=== PATIENT | female | born 1985 ===

== ENCOUNTER 2021-02-02 09:47 | Outpatient (REF) | payer OTHER, SELFPAY ==
[2021-02-02 14:00] LABS: CT PCR NOT DETECTED (Not Detect.); NG PCR NOT DETECTED (Not Detect.)
[2021-02-03 10:01] LABS: BV Int Neg Control Negative (Negative); BV Int Pos Control Positive (Positive)
== END 2021-02-02 09:48 | disposition home or self-care (01) ==
LOC: HO.LAB 09:47
PROVIDERS: Visit Provider Obstetrics & Gynecology
DX: Z01.419 Encounter for gynecological examination (general) (routine) without abnormal findings (principal); Z11.3 Encounter for screening for infections with a predominantly sexual mode of transmission
CPT/HCPCS: 87480; 87491; 87510; 87591; 87660

== ENCOUNTER 2021-06-27 02:08 | Emergency (ER) | payer OTHER, SELFPAY ==
[2021-06-27 02:11] VITALS: BP 119/54; PULSE 70; RESP 16; TEMP 36.7; O2SAT 97; BMI 28.1
[2021-06-27 02:17] VITALS: BP 122/64; PULSE 72; O2SAT 99
[2021-06-27 02:18] VITALS: RESP 16
--- NOTE | 2021-06-27 03:25 | ED_ITS ---
HPI - Back Pain/Injury General Chief Complaint: Back Pain/Injury Stated Complaint: back pain Time Seen by Provider: 06/27/21 03:25 Source: patient Mode of arrival: ambulatory History of Present Illness HPI Narrative: 35-year-old female without significant past medical history who presents with acute on chronic lower back pain that she states radiates down the back of her left lower extremity and endorses that this was acute onset while s he was sleeping in bed. She states that she felt very stiff and had some difficulty making it to the bathroom. However, she denies any recent fever, chills, diarrhea, loss of bowel or bladder function. Patient states she does have a history of sciatica and denies any urinary pain/burning/frequency. She denies any recent falls or physical altercations that may have contributed to her back pain. Related Data Home Medications Medication Instructions Recorded Confirmed multivitamin 1 tab PO DAILY 02/02/21 Previous Rx's Medication Instructions Recorded cyclobenzaprine 5 mg tablet 5 mg PO BEDTIME PRN #4 tab 06/27/21 ketorolac 10 mg tablet 10 mg PO Q6H PRN 5 Days #20 tab 06/27/21 Allergies Allergy/AdvReac Type Severity Reaction Status Date / Time No Known Allergies Allergy Unknown Verified 02/02/21 09:55 Review of Systems Review of Systems: Pertinent positives and negatives as stated in HPI and 10 point review of systems is otherwise negative. PMFSH Past Medical History Source: nursing notes reviewed Surgical History H/O breast augmentation Tubal ligation status Social History Social History Alcohol intake: current Patient Tobacco Use Status: Current everyday Tobacco user Advance Directives: No Physical Exam Vital Signs: Vital Signs: Last Vital Signs Temp 98.0 F 06/27/21 02:11 Pulse 70 06/27/21 02:11 Resp 16 06/27/21 02:18 BP 119/54 L 06/27/21 02:11 Pulse Ox 97 06/27/21 02:11 Body Mass Index 28.1 VITAL SIGNS: Reviewed. GENERAL: Well developed, well nourished, in no acute distress. HEAD: Normocephalic/atraumatic EYES: PERRLA, EOMI OROPHARYNX: no oral lesions noted, posterior pharynx clear NECK: Supple, no adenopathy LUNGS: Normal breath sounds. No adventitious sounds or accessory muscle use. SpO2<97> CARDIOVASCULAR: Regular rate and rhythm without noted murmurs ABDOMEN: Soft, non-tender, non-distended with bowel sounds. BACK: Pain on palpation over left lower back, palpable DP/PT, capillary refill is less than 3 seconds, straight leg test is negative MUSCULOSKELETAL: No tenderness, deformities, or effusions noted on gross inspection. EXTREMITIES: No cyanosis, clubbing or edema. SKIN: Inspection of the skin reveals no rashes NEUROLOGIC: Alert and oriented x 4. Strength and sensation to light touch were grossly intact x 4. Course Course Course Narrative: 35-year-old female with history and clinical presentation most consistent with acute on chronic lower back pain associated sciatica, but will rule out UTI. Low clinical suspicion for cauda equina. Review of all investigations negative for acute findings such as and on re-evaluation after receiving combination analgesics patient reports improvement in her pain and discomfort and is otherwise discharged home in stable condition with instructions to follow up with the primary care provider. MDM - Back Pain/Injury Lab Data Labs: Lab Results 06/27/21 06/27/21 Range/Units 03:41 03:41 Urine Color YELLOW Urine Appearance CLEAR Urine pH 6.0 (5.0-8.0) Ur Specific [place] >= 1.030 H (1.005-1.025) Urine Protein NEG (NEG-TRACE) MG/DL Urine Glucose (UA) NEG (NEG) MG/DL Urine Ketones NEG (NEG) MG/DL Urine Blood 1+ H (NEG) Urine Nitrite NEG (NEG) Ur Leukocyte Esterase NEG (NEG) Urine RBC 0-2 (0) /HPF Urine WBC 0-2 (0-4) /HPF Ur Squamous Epith Cells 2+ /LPF Urine Bacteria NONE /LPF Urine Mucus 4+ /LPF Urine Test NEGATIVE (NEGATIVE) Discharge Plan Discharge Clinical Impression: Lumbar radiculopathy, Sciatica Patient Disposition: Home, Self-Care Instructions: Sciatica (ED), Lumbar Radiculopathy (ED), Lower Back Exercises (ED) Additional Instructions: 1. Tylenol 1000 mg, orally, every 6 hours as needed for pain control. Do not exceed 4000 mg within 24 hours. 2. Lidocaine patch, these are available [id number] and should be apply to area of maximal tenderness as directed on the outside packaging. 3. Follow-up with your primary care provider today to set up an appointment for re-evaluation further outpatient management. Return to the ER for acute worsening of symptoms. Prescriptions: New cyclobenzaprine 5 mg tablet 5 mg PO BEDTIME PRN (Reason: muscle spasm) Qty: 4 RF: 0 ketorolac 10 mg tablet 10 mg PO Q6H PRN (Reason: pain) 5 Days Qty: 20 RF: 0 No Action multivitamin Tablet 1 tab PO DAILY RF: 0 Stand Alone Forms: Work/School Release
[2021-06-27 04:06] LABS: Appearance Urine CLEAR; Color Urine YELLOW; Glucose Urine UA NEG (NEG); Leukocyte Esterase Urine NEG (NEG); Nitrite Urine NEG (NEG); Specific Gravity - Urine >= 1.030 (1.005-1.025); UACC Culture Trigger NO; Urine Blood 1+ (NEG); Urine Ketones NEG (NEG); Urine Protein NEG (NEG-TRACE)
[2021-06-27 04:15] LABS: UPreg QC Valid YES; Urine Pregnancy NEGATIVE (NEGATIVE)
[2021-06-27] MEDS: Acetaminophen 325 MG TABLET 975 MG PO (04:22)
[2021-06-27] MEDS: Lidocaine 4 % Patch ADH..PATCH 1 PATCH TRANSDERMA (04:22)
[2021-06-27 04:42] LABS: Mucus Urine 4+ /LPF; RBC Urine 0-2 /HPF (0); Squamous Epithelial Cell Urine 2+ /LPF; WBC Urine 0-2 /HPF (0-4)
[2021-06-27] MEDS: Ketorolac Tromethamine 15 MG/ML VIAL IM (04:54)
[2021-06-27] MEDS: Cyclobenzaprine HCl 5 MG TABLET PO (04:54)
[2021-06-27 05:05] VITALS: RESP 16
== END 2021-06-27 05:07 | disposition home or self-care (01) ==
PROVIDERS: Emergency Provider Student in an Organized Health Care Education/Training Program
DX: M54.16 Radiculopathy, lumbar region (principal); M54.40 Lumbago with sciatica, unspecified side
CPT/HCPCS: 81001; 81003; 81025; 96372; 99284; J1885

== ENCOUNTER 2021-07-13 15:47 | Outpatient (REF) | payer OTHER, SELFPAY ==
--- NOTE | ~2021-07-13 | XR_ITS ---
EXAMINATION: 1. RADIOGRAPHS LUMBAR SPINE 2. RADIOGRAPHS SACRUM/COCCYX CLINICAL INFORMATION: Sacroiliitis COMPARISON: Lumbar spine x-rays 08/19/2010 TECHNIQUE: 5 views of the lumbar spine and 2 views of the sacrum/coccyx were obtained. FINDINGS: 5 nonrib-bearing lumbar vertebral bodies are visualized. Normal alignment. Lumbar vertebral body heights and disc spaces are well-maintained. No appreciable degenerative changes of the lumbar spine. No fracture of the sacrum or coccyx. Sacroiliac joints are symmetric. Small pelvic calcifications are likely vascular in nature. XR/XR lumbar spine 4V min IMPRESSION: Unremarkable radiographs of the lumbar spine, sacrum and coccyx.
--- NOTE | ~2021-07-13 | XR_ITS ---
EXAMINATION: 1. RADIOGRAPHS LUMBAR SPINE 2. RADIOGRAPHS SACRUM/COCCYX CLINICAL INFORMATION: Sacroiliitis COMPARISON: Lumbar spine x-rays 08/19/2010 TECHNIQUE: 5 views of the lumbar spine and 2 views of the sacrum/coccyx were obtained. FINDINGS: 5 nonrib-bearing lumbar vertebral bodies are visualized. Normal alignment. Lumbar vertebral body heights and disc spaces are well-maintained. No appreciable degenerative changes of the lumbar spine. No fracture of the sacrum or coccyx. Sacroiliac joints are symmetric. Small pelvic calcifications are likely vascular in nature. XR/XR sacrum coccyx min 2V IMPRESSION: Unremarkable radiographs of the lumbar spine, sacrum and coccyx.
== END 2021-07-13 15:48 | disposition home or self-care (01) ==
LOC: HO.XRAY 15:47
PROVIDERS: Visit Provider Nurse Practitioner Adult Health
DX: M46.1 Sacroiliitis, not elsewhere classified (principal)
CPT/HCPCS: 72110; 72220

== ENCOUNTER 2022-02-08 10:58 | Outpatient (REF) | payer OTHER, SELFPAY ==
[2022-02-08 14:05] LABS: CT PCR NOT DETECTED (Not Detect.); NG PCR NOT DETECTED (Not Detect.)
== END 2022-02-08 10:59 | disposition home or self-care (01) ==
LOC: HO.LAB 10:58
PROVIDERS: Visit Provider Obstetrics & Gynecology
DX: Z11.3 Encounter for screening for infections with a predominantly sexual mode of transmission (principal); R10.2 Pelvic and perineal pain
CPT/HCPCS: 87086; 87491; 87591

== ENCOUNTER 2023-02-14 09:46 | Outpatient (REF) | payer OTHER, SELFPAY | END 2023-02-14 09:47 | disposition home or self-care (01) | LOC: HO.LAB 09:46 | PROVIDERS: Visit Provider Obstetrics & Gynecology | DX: Z01.419 Encounter for gynecological examination (general) (routine) without abnormal findings (principal); N93.9 Abnormal uterine and vaginal bleeding, unspecified; Z20.2 Contact with and (suspected) exposure to infections with a predominantly sexual mode of transmission | CPT/HCPCS: 0353U; 84146; 84443; 84702; 85027; 86780; 86803; 87340; 99212 ==

== ENCOUNTER 2023-02-14 10:29 | Outpatient (REF) | payer OTHER, SELFPAY | END 2023-02-14 10:30 | disposition home or self-care (01) | LOC: HO.LNP 10:29 | PROVIDERS: Visit Provider Obstetrics & Gynecology | DX: N93.9 Abnormal uterine and vaginal bleeding, unspecified (principal); Z20.2 Contact with and (suspected) exposure to infections with a predominantly sexual mode of transmission | CPT/HCPCS: 87480; 87510; 87660 ==

== ENCOUNTER 2023-04-17 11:28 | Outpatient (REF) | payer OTHER, SELFPAY ==
--- NOTE | ~2023-04-17 | US_ITS ---
EXAMINATION: US PELVIS CLINICAL INFORMATION: Abnormal bleeding. LMP 04/12/2023. COMPARISON: 12/15/2019 TECHNIQUE: Ultrasound of the pelvis is performed using both transabdominal and transvaginal transducers along with Doppler. Transvaginal imaging is performed due to inadequate visualization transabdominally. FINDINGS: Uterus: The uterus is retroverted and measures 7.3 x 4.1 x 5.7 cm. Uterine echotexture is heterogeneous. The double wall endometrial thickness is 0.7 mm. Cervical nabothian cysts are present. Adnexa: Both ovaries are visualized. There is normal color flow to the adnexa. Right ovary measures 2.8 x 2.0 x 2.3 cm. Left ovary measures 2.9 x 1.8 x 1.8 cm. A left paraovarian cyst measures 0.6 x 0.4 x 0.6 cm. US/US pelvic and transvaginal IMPRESSION: Unremarkable pelvic ultrasound.
== END 2023-04-17 11:29 | disposition home or self-care (01) ==
LOC: HO.US 11:28
PROVIDERS: Visit Provider Obstetrics & Gynecology
DX: N93.9 Abnormal uterine and vaginal bleeding, unspecified (principal)
CPT/HCPCS: 76830; 76856

== ENCOUNTER 2023-08-21 13:53 | Outpatient (REF) | payer OTHER, SELFPAY | END 2023-08-21 13:54 | disposition home or self-care (01) | LOC: HO.LNP 13:53 | PROVIDERS: PCP Internal Medicine; Visit Provider Obstetrics & Gynecology | DX: N93.9 Abnormal uterine and vaginal bleeding, unspecified (principal) | CPT/HCPCS: 58100; 81025; 88305 ==

== ENCOUNTER 2023-08-21 13:53 | Outpatient (AMB) | payer OTHER, SELFPAY ==
--- OUTSIDE RECORDS SUMMARY | 2023-08-21 13:55 | XMS_ITS | Continuity of Care Document ---
Author Name Unknown Organization [facility] Hardy lt Address [address] [place] [phone]- Care Team Providers Care Vp Marketing Services And Skin Name Role Phone Dutch Merchant MD Primary Care Physician [phone] [place] [facility] [place]): 06/14/23 - 07/14/23 [facility] Adult [address] [place] [address]- Allergies, Adverse Reactions, Alerts No Known Allergies Immunizations Given and Recorded Vaccine Date Status Refusal Reason SARS-CoV-2 (COVID-19) mRNA-1273 vaccine 08/09/21 R ecorded SARS-CoV-2 (COVID-19) Ad26 vaccine 11/21/20 Given tetanus/diphtheria/pertussis, acel(Tdap) 09/28/16 Given influenza virus vaccine, inactivated 1 05/31/16 Re corded 1Location History: [facility]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 Start Date: 11/30/21 Status: Ordered hydrOXYzine hydrochloride 25 mg oral tablet 0 Refills, Maintenance, 06/11/23 10:35:00 EDT, Partial fill upon patient request if the prescription is for a schedule II opioid drug. Start Date: 06/11/23 Status: Ordered MiraLax oral powder for reconstitution = 17 Gm, By Mouth, Daily, dissolve in water before taking, # 255 Gm, 3 Refills, Maintenance, 07/12/20 13:26:00 EST, [place], [id number], Partial fill upon patient request, 17 Gm By Mouth Daily,Instr:dissolve in water before taking, 168, cm,... Start Date: 07/12/20 Status: Ordered Multi Vitamin+ 0 Refills, Maintenance, 10/23/22 14:07:00 EDT, Partial fill upon patient request if the prescription is for a schedule II opioid drug. Start Date: 10/23/22 Status: Ordered omeprazole 20 mg oral delayed release tablet 1 tablet = 20 mg, By Mouth, Daily, # 30 tablet, 0 Refills, Maintenance, 10/23/22 14:26:00 EDT, [place] Tablet, [facility]/pharmacy #[id number], Partial fill upon patient request if the prescription is for a schedule II opioid drug., 168, cm, 10/23/22 14:00:00 EDT, Height Start Date: 10/23/22 Status: Ordered sertraline 50 mg oral tablet 1 tablet, By Mouth, Daily, # 30 tablet, 1 Refills, Maintenance, 10/23/22 14:26:00 EDT, [id number], 168, cm, 10/23/22 14:00:00 EDT, Height Start Date: 10/23/22 Status: Ordered Tylenol 8 Hour 650 mg oral tablet, extended release 2 tablet = 1,300 mg, By Mouth, Every 8 hours, 0 Refills, Maintenance, 04/24/22 15:39:00 EDT, Partial fill upon patient request if the prescription is for a schedule II opioid drug. Start Date: 04/24/22 Status: Ordered Problem List Condition Confirmation Course Effective Dates Status H ealth Status Informant Abdominal pain Confirmed Active Acne Confirmed Active Daily headache Confirmed Active Excessive caffeine intake Confirmed Active History of chlamydia 1 Confirmed Active Joint pain Confirmed Active Left lateral epicondylitis Confirmed Active Left cervical radiculopathy Confirmed Active Lt low back pain Confirmed Active Mixed incontinence Confirmed Active Arm pain Confirmed Active Screen for sexually transmitted diseases Confirmed Active Tinea versicolor Confirmed Active PTSD (post-traumatic stress disorder) Confirmed Active Insomnia due to psychological stress Confirmed Active Major depression, recurrent Confirmed Active Tobacco abuse Confirmed Active 1j2016, routine screening Social History Social History Type Response Tobacco Use: 4 or less cigar ettes(less than 1/4 pack)/day in last 30 days. Sex Patient Care team information Care Team Personnel Name: Shonda HIGHTOWER, [place] Lo Position: S Physician - Primary Care Member Role: PCP Address: Address: [address] [place] [address]- Care Team Related Persons Name: DAILEYMAYOSHAHLA Address: home [address] [address]
--- OUTSIDE RECORDS SUMMARY | 2023-08-21 13:56 | XMS_ITS | Continuity of Care Document ---
Author Name Unknown Organization [facility] Hardy lt Address [address] [place] [address]- Care Team Providers Care Medical Office Supervisor Name Role Phone Dutch Merchant MD Primary Care Physician [place] [facility] [place]23 [facility] Adult [address] [place] [address]- Attending Physician: Not on Staff, Attending MD Allergies, Adverse Reactions, Alerts No Known Allergies Immunizations Given and Recorded Vaccine Date Status Refusal Reason SARS-CoV-2 (COVID-19) mRNA-1273 vaccine 08/09/21 R ecorded SARS-CoV-2 (COVID-19) Ad26 vaccine 11/21/20 Given tetanus/diphtheria/pertussis, acel(Tdap) 09/28/16 Given influenza virus vaccine, inactivated 1 05/31/16 Re corded 1Location 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
--- OUTSIDE RECORDS SUMMARY | 2023-08-21 13:56 | XMS_ITS | Continuity of Care Document ---
Author Name Unknown Organization [facility] Hardy lt Address [address] [place] [address]- Care Team Providers Care Emergency Veterinary Technician Name Role Phone Dutch Merchant MD Primary Care Physician [phone] Encounter [facility] [place] Date(s): 05/30/23 - 06/29/23 [facility] Adult [address] [place] [address]- Allergies, Adverse Reactions, Alerts No Known Allergies Immunizations Given and Recorded Vaccine Date Status Refusal Reason SARS-CoV-2 (COVID-19) mRNA-1273 vaccine 08/09/21 R ecorded SARS-CoV-2 (COVID-19) Ad26 vaccine 11/21/20 Given tetanus/diphtheria/pertussis, acel(Tdap) 09/28/16 Given influenza virus vaccine, inactivated 1 05/31/16 Re corded 1Location History: [facility]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
--- OUTSIDE RECORDS SUMMARY | 2023-08-21 13:56 | XMS_ITS | Continuity of Care Document ---
Author Name Unknown Organization [facility] Hardy lt Address [address] [place] [address]- Care Team Providers Care Metrology Engineer Name Role Phone Dutch Merchant MD Primary Care Physician Encounter [facility] [place] Date(s): 06/12/23 - 07/12/23 [facility] Adult [address] [place] [address]- Allergies, Adverse Reactions, Alerts No Known Allergies Immunizations Given and Recorded Vaccine Date Status Refusal Reason SARS-CoV-2 (COVID-19) mRNA-1273 vaccine 08/09/21 R ecorded SARS-CoV-2 (COVID-19) Ad26 vaccine 11/21/20 Given tetanus/diphtheria/pertussis, acel(Tdap) 09/28/16 Given influenza virus vaccine, inactivated 1 05/31/16 Re corded 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
--- OUTSIDE RECORDS SUMMARY | 2023-08-21 13:56 | XMS_ITS | Continuity of Care Document ---
Author Name Unknown Organization [facility] Hardy lt Address [address] [place] [address]- Care Team Providers Care Religious Education Director Name Role Phone Dutch Merchant MD Primary Care Physician [phone] Encounter [facility] Date(s): 06/12/23 - 07/12/23 [facility] Adult [address] [place] [address]- Allergies, Adverse Reactions, Alerts No Known Allergies Immunizations Given and Recorded Vaccine Date Status Refusal Reason SARS-CoV-2 (COVID-19) mRNA-1273 vaccine 08/09/21 R ecorded SARS-CoV-2 (COVID-19) Ad26 vaccine 11/21/20 Given tetanus/diphtheria/pertussis, acel(Tdap) 09/28/16 Given influenza virus vaccine, inactivated 1 05/31/16 Re corded 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
--- OUTSIDE RECORDS SUMMARY | 2023-08-21 13:57 | XMS_ITS | Continuity of Care Document ---
Author Name Unknown Organization [facility] Hardy lt Address [address] [place] [address]- Care Team Providers Care Plant Maintenance Technician Name Role Phone Dutch Merchant MD Primary Care Physician Encounter [facility] Date(s): 06/14/23 - 07/14/23 [facility] Adult [address] [place] [address]- Allergies, Adverse Reactions, Alerts No Known Allergies Immunizations Given and Recorded Vaccine Date Status Refusal Reason SARS-CoV-2 (COVID-19) mRNA-1273 vaccine 08/09/21 R ecorded SARS-CoV-2 (COVID-19) Ad26 vaccine 11/21/20 Given tetanus/diphtheria/pertussis, acel(Tdap) 09/28/16 Given influenza virus vaccine, inactivated 1 05/31/16 Re corded 1Location 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
--- OUTSIDE RECORDS SUMMARY | 2023-08-21 13:57 | XMS_ITS | Continuity of Care Document ---
Author Name Unknown Organization [facility] Hardy lt Address [address] [place] [address]- Care Team Providers Care Bias Cutting Machine Operator Name Role Phone Dutch Merchant MD Primary Care Physician [id number] Adult [address] [place] [address]- Encounter Diagnosis IBS (irritable bowel syndrome)(Discharge Diagnosis) - 08/09/23 Attending Physician: Mg HIGHTOWER, Manish Lo Allergies, Adverse Reactions, Alerts No Known Allergies Immunizations Given and Recorded Vaccine Date Status Refusal Reason SARS-CoV-2 (COVID-19) mRNA-1273 vaccine 08/09/21 R ecorded SARS-CoV-2 (COVID-19) Ad26 vaccine 11/21/20 Given tetanus/diphtheria/pertussis, acel(Tdap) 09/28/16 Given influenza virus vaccine, inactivated 1 05/31/16 Re corded 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 Start Date: 06/11/23 Status: Ordered Multi Vitamin+ 0 Refills, Maintenance, 10/23/22 14:07:00 EDT, Partial fill upon patient request if the prescription is for a schedule II opioid drug. Start Date: 10/23/22 Status: Ordered omeprazole 20 mg oral delayed release tablet 1 tablet = 20 mg, By Mouth, Daily, # 30 tablet, 0 Refills, Maintenance, 10/23/22 14:26:00 EDT, CR Tablet, [facility]/pharmacy #[id number], Partial fill upon patient request if the prescription is for a schedule II opioid drug., 168, cm, 10/23/22 14:00:00 EDT, Height Start Date: 10/23/22 Status: Ordered sertraline 50 mg oral tablet 1 tablet, By Mouth, Daily, # 30 tablet, 1 Refills, Maintenance, 10/23/22 14:26:00 EDT, [facility]/pharmacy#[id number], 168, cm, 10/23/22 14:00:00 EDT, Height Start [...] recurrent Confirmed Active Tobacco abuse Confirmed Active 1june 2016, routine screening Diagnosis Diagnosis Type Effective Dates Health Status Cl inical Service Informant IBS (irritable bowel syndrome) Discharge Diagnosis 08/09/23 Vital Signs Most recent to oldest [Reference Range]: 1 Height 168 cm (08/09/23 1:47 PM) Weight 69.9 kg (08/09/23 1:47 PM) Oxygen Saturation [94-100 %] 100 % (08/09/23 1:47 PM) Pulse Rate [55-90 bpm] 84 bpm (08/09/23 1:47 PM) Body Mass Index [18.5-24.99 kg/m2] 24.77 kg/m2 (08/09/23 1:47 PM) Blood Pressure [90-138/55-84 mm Hg] 120/ 68mm Hg (08/09/23 1:47 PM) Temperature [96.8-100.4 DegF] 98.5 DegF (08/09/23 1:47 PM) Blood pressure sites Arm, right (08/09/23 1:47 PM) Temperature Route Oral (08/09/23 1:47 PM) Weight Obtained Via Standing scale (08/09/23 1:47 PM) Social History Social History Type Response Tobacco Use: 4 or less cigar ettes(less than 1/4 pack)/day in last 30 days. Sex Patient Care team information Care Team Personnel Name: Dutch Merchant MD Position: S Physician - Primary Care Member Role: PCP Address: Address: [address] [place] [address]- Care Team Related Persons Name: SHAHLA DAILEY Address: home [address] [place] [address]
--- OUTSIDE RECORDS SUMMARY | 2023-08-21 13:57 | XMS_ITS | Continuity of Care Document ---
Author Name Unknown Organization [facility] Hardy lt Address [address] [place] [address]- Care Team Providers Care Superintendent Geophysical Laboratory Name Role Phone Dutch Merchant MD Primary Care Physician [phone] Encounter [facility] [place] Date(s): 06/12/23 - 07/12/23 [facility] Adult [address] [place] [address]- Allergies, Adverse Reactions, Alerts No Known Allergies Immunizations Given and Recorded Vaccine Date Status Refusal Reason SARS-CoV-2 (COVID-19) mRNA-1273 vaccine 08/09/21 R ecorded SARS-CoV-2 (COVID-19) Ad26 vaccine 11/21/20 Given tetanus/diphtheria/pertussis, acel(Tdap) 09/28/16 Given influenza virus vaccine, inactivated 1 05/31/16 Re corded 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/pharmacy #[id number], Partial fill upon patient request if [...] Refills, Maintenance, 10/23/22 14:26:00 EDT, CR Tablet, [facility]/pharmacy #[id number], Partial fill upon patient request if [...] Care Member Role: PCP Address: Address: [address] [place] [address]- Care Team Related Persons Name: DAILEYMAYOSHAHLA Address: home [address] [address]
--- OUTSIDE RECORDS SUMMARY | 2023-08-21 13:57 | XMS_ITS | Continuity of Care Document ---
Author Name Unknown Organization [facility] Hardy lt Address [address] [place] [address]- Care Team Providers Care Film Editor Name Role Phone Dutch Merchant MD Primary Care Physician En[place] [facility] [place] Date(s): 06/04/23 - 07/04/23 [facility] Adult [address] [place] [address]- Allergies, Adverse Reactions, Alerts No Known Allergies Immunizations Given and Recorded Vaccine Date Status Refusal Reason SARS-CoV-2 (COVID-19) mRNA-1273 vaccine 08/09/21 R ecorded SARS-CoV-2 (COVID-19) Ad26 vaccine 11/21/20 Given tetanus/diphtheria/pertussis, acel(Tdap) 09/28/16 Given influenza virus vaccine, inactivated 1 05/31/16 Re corded 1Location History: [facility] [employer] Medications Flonase 50 mcg/inh nasal spray 1 sprays, Nares, Both, Daily, # 16 Gm, 2 Refills, Maintenance, 11/30/21 10:36:00 EDT, [place], [facility]/pharmacy #[id number], Partial fill upon patient request [...] Refills, Maintenance, 10/23/22 14:26:00 EDT, CR Tablet, [facility]/pharmacy #[id number], Partial fill upon patient request [...] Care Member Role: PCP Address: Address: [address] [place] [address]- Care Team Related Persons Name: DAILEYMAYOSHAHLA Address: home [address] [address]
--- OUTSIDE RECORDS SUMMARY | 2023-08-21 13:58 | XMS_ITS | Continuity of Care Document ---
Author Name Unknown Organization [facility] Address [address] [place] [address]- Care Team Providers Care Room Service Associate Name Role Phone Dutch Merchant MD Primary Care Physician [phone] Encounter [facility] [place] Date(s): 06/11/23 - 06/18/23 [facility] Adult [address] [place] [address]- Encounter Diagnosis Arm pain(Discharge Diagnosis) - 06/10/23 Left lateral epicondylitis(Discharge Diagnosis) - 06/11/23 Left cervical radiculopathy(Discharge Diagnosis) - 06/11/23 Joint pain(Discharge Diagnosis) - 06/11/23 Screen for sexually transmitted diseases(Discharge Diagnosis) - 06/11/23 Attending Physician: Momo Bocanegra DO Allergies, Adverse Reactions, Alerts No Known Allergies Immunizations Given and Recorded Vaccine Date Status Refusal Reason SARS-CoV-2 (COVID-19) mRNA-1273 vaccine 08/09/21 R ecorded SARS-CoV-2 (COVID-19) Ad26 vaccine 11/21/20 Given tetanus/diphtheria/pertussis, acel(Tdap) 09/28/16 Given influenza virus vaccine, inactivated 1 05/31/16 Re corded 1Location History: [facility] [employer]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 Medications Flonase 50 mcg/inh nasal spray 1 sprays, Nares, Both, Daily, # 16 Gm, 2 Refills, Maintenance, 11/30/21 10:36:00 EDT, [place], [id number], Partial fill upon patient request if the [...] Refills, Maintenance, 07/12/20 13:26:00 EST, REC Powder, [facility]/pharmacy #[id number], Partial fill upon patient request, 17 [...] Diagnosis Diagnosis Type Effective Dates Health Status Clinical Service Informant Arm pain Discharge Diagnosis 06/10/23 Left lateral epicondylitis Discharge Diagnosis 06/11/23 Left cervical radiculopathy Discharge Diagnosis 06/11/23 Joint pain Discharge Diagnosis 06/11/23 Screen for sexually transmitted diseases Discharge Diagnosis 06/11/23 Vital Signs Most recent to oldest [Reference Range]: 1 Height 168 cm (06/11/23 10:32 AM) Weight 67.4 kg (06/11/23 10:32 AM) Oxygen Saturation [94-100 %] 97 % (06/11/23 10:32 AM) Pulse Rate [55-90 bpm] 72 bpm (06/11/23 10:32 AM) Body Mass Index [18.5-24.99 kg/m2] 23.88 kg/m2 (06/11/23 10:32 AM) Blood Pressure [90-138/55-84 mm Hg] 95/5 8mm Hg (06/11/23 10:32 AM) Temperature [96.8-100.4 DegF] 98.0 DegF (06/11/23 10:32 AM) Mode of Delivery (Oxygen) Room air (06/11/23 10:32 AM) Blood pressure sites Arm, left (06/11/23 10:32 AM) Temperature Route Oral (06/11/23 10:32 AM) Weight Obtained Via Standing scale (06/11/23 10:32 AM) Social History Social History Type Response Tobacco Use: 4 or less cigar ettes(less than 1/4 pack)/day in last 30 days. Sex Patient Care team information Care Team Personnel Name: Dutch Merchant MD Position: S Physician - Primary Care Member Role: PCP Address: Address: [address] [place] [address]- Care Team Related Persons Name: SHAHLA DAILEY Address: home [address] [place] [address]
--- OUTSIDE RECORDS SUMMARY | 2023-08-21 13:58 | XMS_ITS | Continuity of Care Document ---
Author Name Unknown Organization [facility] lt Address [address] [place] [address]- Care Team Providers Care Ichthyology Teacher Name Role Phone Dutch Merchant MD Primary Care Physician [phone] Encounter [facility] [place] Date(s): 06/14/23 - 07/14/23 [facility] Adult [address] [place] [address]- Allergies, Adverse Reactions, Alerts No Known Allergies Immunizations Given and Recorded Vaccine Date Status Refusal Reason SARS-CoV-2 (COVID-19) mRNA-1273 vaccine 08/09/21 R ecorded SARS-CoV-2 (COVID-19) Ad26 vaccine 11/21/20 Given tetanus/diphtheria/pertussis, acel(Tdap) 09/28/16 Given influenza virus vaccine, inactivated 1 05/31/16 Re corded 1Location History: [facility] [employer] Medications Flonase 50 mcg/inh nasal spray 1 sprays, Nares, Both, Daily, # 16 Gm, 2 Refills, Maintenance, 11/30/21 10:36:00 EDT, [place], [facility]/pharmacy #[id number], Partial fill upon patient request [...] Maintenance, 10/23/22 14:26:00 EDT, CR Tablet, [facility]/pharmacy #[id number], Partial fill upon patient request [...] Care Member Role: PCP Address: Address: [address] [place] [address]- Care Team Related Persons Name: DAILEYMAYOSHAHLA Address: home [address] [address]
--- NOTE | 2023-08-21 14:13 | A.OFFVIS_ITS ---
Intake Vital Signs 08/21/23 14:17 Height 5 ft 5 in Weight 156 lb 8.451 oz BMI 26.0 BP 110/74 Intake Visit Reasons: Ultrasound follow up/DO NOT RS Allergies No Known Allergies Allergy (Unknown, Verified 02/14/23 09:55) HPI HPI Comments History of Present Illness Details Presenting for EMB [facility] Medical History Irregular menses Surgical History H/O breast augmentation Tubal ligation status Family History Mother Leukemia HTN (hypertension) Father Asthma Diabetes Social History Household Members: Children Housing: Apartment Alcohol intake: current Patient Tobacco Use Status: Current everyday Tobacco user e-Cigarette/Vaping Use: Currently Using Sexual orientation: Straight/Heterosexual Gender identity: Female Female Reproductive History Menstrual Age of Menarche: 13 Review of Systems Const All systems reviewed & are unremarkable except as noted in HPI and below Reports as per HPI and Reports no additional complaints GI Reports no additional complaints Reports no additional complaints Physical Exam Vital Signs: Last Vital Signs BP 110/74 08/21/23 14:17 BMI result Body Mass Index 26.0 Office Procedures Endometrial Biopsy Details: The patient was counseled regarding the indication and benefits of endometrial sampling to rule out endometrial pathology including not limited to endometrial hyperplasia or endometrial cancer and others; The alternatives (Either do nothing vs. hysteroscopy D&C) & the risks were discussed with the patient including but not limited: pain, uterine perforation, bleeding, infection, possible injury to bladder, bowel, ureter, possible need for blood transfusion with all its possible risks. The patient verbalized understanding all questions answered and signed consent. Urine test done in the office was negative The patient was placed into the dorsal lithotomy position; a speculum was inserted in the vagina. Using aseptic technique for the procedure, the cervix was cleansed with Betadine. The anterior lip of the cervix was grasped with a single tooth tenaculum. The uterus was sounded to 7 cm with a 4 mm Pipelle was used. Tissues samples were obtained and placed in formalin, in a patient labeled container and sent to the pathology department. At the end of the procedure, there was minimal bleeding noted The patient tolerated the procedure well and was discharged in good condition with the following instructions: Nothing in the vagina until the bleeding stops. No sex until the bleeding stops, to call if any of the following occurs: fever (>100.4), flu-like symptoms, abdominal pain, heavy bleeding, four smelling vaginal discharge. The patient was instructed to schedule a Follow up appointment in 2 weeks to discuss pathology results of the biopsy and treatment options. This note was generated with a voice recognition program. Some errors may have been overlooked during the review of this note. Sometimes these errors may affect the content or meaning of a given sentence. [id number] Biopsy Assessment & Plan Assessment & Plan (1) Abnormal uterine bleeding (AUB): Code(s): N93.9 - Abnormal uterine and vaginal bleeding, unspecified Plan: EMB done , see procedure note Orders: Orders AMB Endometrial Biopsy Today N93.9 - Abnormal uterine and vaginal bleeding, unspecified Coding Level of Care Code Procedure Only Diagnoses Abnormal uterine bleeding (AUB) N93.9 CPT Codes Endometrial Biopsy - CPT: 20330-[id number] Biopsy ([id number])
[2023-08-21 14:17] VITALS: BP 110/74; BMI 26.0
== END 2023-08-21 14:46 | disposition home or self-care (01) ==
LOC: HO.HWS 13:53
PROVIDERS: PCP Internal Medicine; Visit Provider Obstetrics & Gynecology
DX: N93.9 Abnormal uterine and vaginal bleeding, unspecified (principal); Z32.02 Encounter for pregnancy test, result negative
CPT/HCPCS: 58100

== ENCOUNTER 2023-09-17 08:00 | Outpatient (RCR) | payer OTHER, SELFPAY | END 2023-11-30 08:56 | disposition home or self-care (01) | LOC: HO.PT 08:00 | PROVIDERS: PCP Internal Medicine; Visit Provider Student in an Organized Health Care Education/Training Program | DX: M54.2 Cervicalgia (principal) | CPT/HCPCS: 97110; 97140; 97161; 97530 ==

== ENCOUNTER 2023-10-25 08:39 | Outpatient (AMB) | payer OTHER, SELFPAY ==
--- NOTE | 2023-10-25 08:52 | A.OFFVIS_ITS ---
Intake Vital Signs 10/25/23 08:53 Height 5 ft 5 in Weight 157 lb BMI 26.1 BP 114/70 Intake Visit Reasons: EMB Results/do not minal Marine Engineering Professor Required: No Allergies No Known Allergies Allergy (Unknown, Verified 10/25/23 08:53) Is last menstrual period known: Yes Last menstrual period: 10/16/23 Post menopausal: No HPI HPI Comments History of Present Illness0 Details The patient is presenting for follow-up to discuss the results of her abnormal uterine bleeding workup and options of treatment. The following workup was done.: H&H= 13.4/40.2 TSH, prolactin, hCG, GC and chlamydia were negative. Endometrial biopsy pathology showed secretory endometrium with no evidence of hyperplasia and/or malignancy. Co testing was done in 11/29 was negative. Pelvic ultrasound was unremarkable [facility] Medical History Irregular menses Surgical History H/O breast augmentation Tubal ligation status Family History Mother Leukemia HTN (hypertension) Father Asthma Diabetes Social History Household Members: Children Housing: Apartment Alcohol intake: current Patient Tobacco Use Status: Current everyday Tobacco user e-Cigarette/Vaping Use: Currently Using Sexual orientation: Straight/Heterosexual Gender identity: Female Female Reproductive History Menstrual Age of Menarche: 13 Date of last menstrual period: 10/16/23 control method: permanent sterilization Date of last pap smear: 12/03/18 (negative) History of abnormal pap smear: Yes (2006 DARLYN 1, 2006 ASCUS) Review of Systems Const All systems reviewed & are unremarkable except as noted in HPI and below Reports as per HPI and Reports no additional complaints GI Reports no additional complaints Reports no additional complaints Physical Exam Vital Signs: Last Vital Signs BP 114/70 10/25/23 08:53 BMI result Body Mass Index 26.1 Assessment & Plan Assessment & Plan (1) Abnormal uterine bleeding (AUB): Code(s): N93.9 - Abnormal uterine and vaginal bleeding, unspecified Plan: Discussed with the patient the results of the work up done and options of treatment including Lysteda, BCP's, Mirena IUD, endometrial ablation and hysterectomy. All pros, cons, risks and benefits if each option was discussed with the patient and the patient decided to think about it and get back to us. All questions answered the patient verbalized understanding. Coding Level of Care Code Est Pt Level 3 (50873) Diagnoses Abnormal uterine bleeding (AUB) N93.9
[2023-10-25 08:53] VITALS: BP 114/70; BMI 26.1
== END 2023-10-25 09:08 | disposition home or self-care (01) ==
PROVIDERS: PCP Internal Medicine; Visit Provider Obstetrics & Gynecology
DX: N93.9 Abnormal uterine and vaginal bleeding, unspecified (principal)
CPT/HCPCS: 99213

== ENCOUNTER → 2023-10-25 08:39 | Outpatient (BNVA) | payer OTHER, SELFPAY | PROVIDERS: PCP Internal Medicine; Visit Provider Obstetrics & Gynecology | DX: N93.9 Abnormal uterine and vaginal bleeding, unspecified (principal); Z71.2 Person consulting for explanation of examination or test findings | CPT/HCPCS: 99212 ==

== ENCOUNTER 2023-12-27 08:47 | Outpatient (AMB) | payer OTHER, SELFPAY ==
[2023-12-27 08:50] VITALS: BP 118/70; BMI 26.0
--- NOTE | 2023-12-27 08:50 | MHC.OFFVIS ---
Vital Signs 12/27/23 08:50 Height 5 ft 5 in Weight 156 lb 8.451 oz BMI 26.0 BP 118/70 Intake Visit Reasons: Annual/cotesting Intake Note: Painful intercourse Command And Control Required: No Information Interpreted: non-clinical & clinical Inorganic Chemistry Teacher: Inorganic Chemistry Teacher Present (Vandana FONSECA) Accompanied by: Self / Same As Patient Allergies No Known Allergies Allergy (Unknown, Verified 12/27/23 08:55) Is last menstrual period known: Yes HPI Comments Details: Presenting for annual exam. Complaining of painful intercourse upon deep penetration associated with vulvovaginal irritation with no vaginal discharge or foul odor, no urinary or other GI symptoms Last Pap/HPV was negative in 11/29 [facility] Medical History Irregular menses Surgical History H/O breast augmentation Tubal ligation status Family History Mother Leukemia HTN (hypertension) Father Asthma Diabetes Social History (Updated 12/27/23 @ 08:57 by Vandana Schmitt CMA) Household Members: Children Housing: Apartment Alcohol intake: current Patient Tobacco Use Status: Former Tobacco user e-Cigarette/Vaping Use: Currently Using Current occupational status: employed Sexual orientation: Straight/Heterosexual Gender identity: Female Female Reproductive History Menstrual Age of Menarche: 13 Total pregnancies: 5 Full term: 3 Number of Living Children: 3 Review of Systems Const All systems reviewed & are unremarkable except as noted in HPI and below Card Reports as per HPI Resp Reports as per HPI GI Reports as per HPI and Reports no additional complaints Reports as per HPI Physical Exam Vital Signs: Last Vital Signs BP 118/70 12/27/23 08:50 BMI result Body Mass Index 26.0 Const General: cooperative, healthy appearing and comfortable Chest Chest palpation & inspection: normal inspection of the chest and normal palpation of entire chest wall Breast/axilla inspection: normal inspection of the breasts and normal inspection of the axillae Breast/axilla palpation: normal palpation of the breasts, normal palpation of the axillae and no axillary lymphadenopathy Resp Effort & Inspection: normal respiratory effort Auscultation: clear to auscultation bilaterally Percussion: percussion normal Cardio Palpation: normal PMI Rate: regular rate Rhythm: regular rhythm Heart sounds: no murmurs and no rubs Peripheral pulses: Peripheral pulses 2+ throughout GI Inspection: Yes normal to inspection Palpation (GI): Soft to palpation, nontender, no guarding, not rigid and No hepatosplenomegaly present Percussion: Yes normal to percussion Auscultation: normal bowel sounds Rectal Exam - Female: deferred General: Yes bladder normal to palpation External Female Exam: No lesion Speculum Exam - Vagina: normal appearance of the vagina, normal palpation, normal vaginal discharge and not erythematous Speculum Exam - Cervix: normal appearance of the cervix and normal palpation Bimanual exam- vagina & uterus: normal bimanual exam, normal palpation, uterine size normal, bladder normal to palpation, consistency normal, normal palpation and other (Retroverted uterine) Bimanual Exam- Adnexa, other: normal adnexae, no masses and no tenderness Assessment & Plan Assessment & Plan (1) Well woman exam: Code(s): Z01.419 - Encounter for gynecological examination (general) (routine) without abnormal findings Category: Medical Plan: Cotesting done. Counseled the patient about the recommended dietary allowance of 1000 mg of Calcium & 600 IU of vitamin D. The patient was instructed to perform monthly self-breast exams and to schedule an annual exam in a year; All questions answered and the patient verbalized understanding. Instructed the patient to schedule annual exam in a year (2) Dyspareunia, female: Code(s): N94.10 - Unspecified dyspareunia Category: Medical Plan: Urine test done in the office was negative. Discussed with the patient the possible causes of dyspareunia including but not limited to: A retroverted uterus, bladder causes, cervical infections or vaginitis (infectious vs atrophic) , pelvic mass effect ( uterine or adnexal), causes and others. The workup includes but not limited to: U dip, GC/CG, BV panel and pelvic US, Urine test , the patient was instructed to schedule appointment in 2 weeks for follow-up. (3) Vulvovaginitis: Code(s): N76.0 - Acute vaginitis Category: Medical Plan: GC/CT, Bacterial Vaginosis panel taken, Terazol 0.8% q.h.s. for 3 days was sent to the patient's pharmacy. The patient was instructed to call if symptoms don't improve in 48 hours. (4) Microscopic hematuria: Code(s): R31.29 - Other microscopic hematuria Category: Medical Plan: Urine dip showed microscopic hematuria, will send urine for culture to rule out UTI as a source of urine microscopic hematuria and repeat urine dip in 2 weeks if persistent microscopic hematuria with negative urine culture will proceed with CT scan and urology referral for further management Orders: Orders US pelvic and transvaginal Today N94.10 - Unspecified dyspareunia Pap Smear Today Z01.419 - Encounter for gynecological examination (general) (routine) without abnormal findings Bacterial Vaginosis Panel Today Z01.419 - Encounter for gynecological examination (general) (routine) without abnormal findings CT NG by PCR Today Z01.419 - Encounter for gynecological examination (general) (routine) without abnormal findings Medications: New terconazole 0.8% 1 appful vaginal BEDTIME 20 grams 0RF 3 days Coding Level of Care Code Est Pt Prev Care 40-64y(07880) Diagnoses Well woman exam Z01.419 Dyspareunia, female N94.10 Vulvovaginitis N76.0 Microscopic hematuria R31.29
== END 2023-12-27 09:11 | disposition home or self-care (01) ==
PROVIDERS: PCP Internal Medicine; Visit Provider Obstetrics & Gynecology
DX: Z01.419 Encounter for gynecological examination (general) (routine) without abnormal findings (principal); N94.10 Unspecified dyspareunia; N76.0 Acute vaginitis; R31.29 Other microscopic hematuria
CPT/HCPCS: 99395

== ENCOUNTER 2023-12-27 08:47 | Outpatient (REF) | payer OTHER, SELFPAY ==
[2023-12-27 16:40] LABS: Bacterial Vaginosis PCR NEGATIVE (Negative); Candida Group PCR NOT DETECTED (Not Detect); Candida glab krusei PCR NOT DETECTED (Not Detect); Trichomonas vaginalis PCR NOT DETECTED (Not Detect)
[2023-12-27 17:30] LABS: CT PCR NOT DETECTED (Not Detect.); NG PCR NOT DETECTED (Not Detect.)
[2024-01-04 15:33] LABS: HPV mRNA E6/E7 rflx Not Detected (Not Detected)
== END 2023-12-27 08:48 | disposition home or self-care (01) ==
LOC: HO.LNP 08:47
PROVIDERS: PCP Internal Medicine; Visit Provider Obstetrics & Gynecology
DX: Z01.419 Encounter for gynecological examination (general) (routine) without abnormal findings (principal); R31.29 Other microscopic hematuria; N94.10 Unspecified dyspareunia; N76.0 Acute vaginitis
CPT/HCPCS: 0352U; 0353U; 87086; 87624; 88142; 99395

== ENCOUNTER 2024-01-09 11:18 | Outpatient (REF) | payer OTHER, SELFPAY ==
--- NOTE | ~2024-01-09 | US_ITS ---
EXAMINATION: US PELVIS CLINICAL INFORMATION: Dyspareunia, last menstrual period January 03, 2024. COMPARISON: Pelvic ultrasound of April 17, 2023 TECHNIQUE: Ultrasound of the pelvis was performed using both transabdominal and transvaginal transducers along with Doppler. Transvaginal imaging is performed due to inadequate visualization transabdominally. FINDINGS: The uterus is retroverted and measures 7.7 x 4.7 x 6.3 cm. Endometrial thickness is 10 mm. There is no significant free fluid. Right ovary measures 3.3 x 1.9 x 2.2 cm, volume 7.2 mL. Possible small follicles within the right ovary, largest 1.6 cm. Left ovary measures 3.4 x 1.8 x 3.2 cm, volume 10.3 mL. Multiple follicles within the left ovary, largest 2.3 cm. There is no specific indication for additional imaging at this time. US/US pelvic and transvaginal IMPRESSION: Endometrial thickness is 10 mm. Bilateral ovarian follicles, largest 2.3 cm left ovary. There is no specific indication for additional imaging at this time.
== END 2024-01-09 11:19 | disposition home or self-care (01) ==
LOC: HO.US 11:18
PROVIDERS: PCP Internal Medicine; Visit Provider Obstetrics & Gynecology
DX: N94.10 Unspecified dyspareunia (principal)
CPT/HCPCS: 76830; 76856

== ENCOUNTER 2024-02-27 11:05 | Outpatient (AMB) | payer OTHER, SELFPAY ==
--- OUTSIDE RECORDS SUMMARY | 2024-02-27 11:06 | XMS_ITS | Continuity of Care Document ---
Author Organization [facility] [place] Hardy lt Address [address] [place] [address]- Care Team Providers Care Pastry Chef Name Role Phone Dutch Merchant MD Primary Care Physician [phone] [place] [facility] [place]23 - 09/08/23 [facility] [place] Adult [address] [place] [address]- Attending Physician: Admtr, [id number] Admitting Physician: Admtr, Ar8 Referring Physician: Admtr, Ar8 Allergies, Adverse Reactions, Alerts No Known Allergies Immunizations Given and Recorded Vaccine Date Status Refusal Reason SARS-CoV-2 (COVID-19) mRNA-1273 vaccine 08/09/21 R ecorded SARS-CoV-2 (COVID-19) Ad26 vaccine 11/21/20 Given tetanus/diphtheria/pertussis, acel(Tdap) 09/28/16 Given influenza virus vaccine, inactivated 1 05/31/16 Re corded 1Location History: [facility] [employer] 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 May inrease up to 3 times a day as needed., # 245 Gm, 2 Refills, Maintenance, 08/31/23 8:52:00 EST, [place] Pow[place], [facility]/pharmacy #[id number], Partial fill upon patient... Start Date: 08/31/23 Status: Ordered cloNIDine 0.1 mg oral tablet Refills 0, Maintenance, 08/31/23 8:12:00 EST, Partial fill upon patient request if the prescriptionis for a schedule II opioid drug. Start Date: 08/31/23 Status: Ordered dicyclomine 10 mg oral capsule 1 capsule = 10 mg, By Mouth, 4 times a day, PRN Irritable Bowel Symptoms, # 120 capsule, 1 Refills,Maintenance, 08/31/23 8:50:00 EST, [id number], Partial fill upon patient request if the prescription is for a schedule II opioid drug., 168, cm... Start Date: 08/31/23 Status: Ordered hydrocortisone 2.5% topical cream See Instructions, PRN Itch, Topically 3 times a day, # 454 Gm, 1 Refills, Maintenance, 08/31/23 8:50:00 EST, [id number], Partial fill upon patient request if the prescription is for a schedule II opioid drug., Topically 3 times a day,PRN:Itch,... Start Date: 08/31/23 Status: Ordered hydrOXYzine hydrochloride 25 mg oral [...] abuse Confirmed Active 1june 2016, routine screening Social History Social History Type Response Smoking Status Former smoker, quit more than 30 days ago entered on: 08/31/23 Sex EKG study * Event Display: EKG Authored Date: Laboratory * Event Display: Non BH Lab Results Authored Date: * Event Display: Non BH Lab Results Authored Date: * Event Display: Non BH Lab Results Authored Date: * Event Display: Non BH Lab Results Authored Date: Patient Care team information Care Team Personnel Name: Shonda HIGHTOWER, Dutch Lo Position: [facility] Physician - Primary Care Member Role: PCP Address: Address: [address] [place] [address]- Care Team Related Persons Name: SHAHLA DAILEY Address: home [address] [place] [phone]
--- OUTSIDE RECORDS SUMMARY | 2024-02-27 11:06 | XMS_ITS | Continuity of Care Document ---
Author Organization [facility] Address [address] [place] [address]- Care Team Providers Care Patient Attendant Name Role Phone Ducth Merchant MD Primary Care Physician Encounter [facility] [place](s): 09/03/23 - 10/03/23 [facility] [address] [place] [address]- [place] Allergies, Adverse Reactions, Alerts No Known Allergies Immunizations Given and Recorded Vaccine Date Status Refusal Reason SARS-CoV-2 (COVID-19) mRNA-1273 vaccine 08/09/21 R ecorded SARS-CoV-2 (COVID-19) Ad26 vaccine 11/21/20 Given tetanus/diphtheria/pertussis, acel(Tdap) 09/28/16 Given influenza virus vaccine, inactivated 1 05/31/16 Re corded 1Location History: [facility] [employer]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 May inrease up to 3 times a day as needed., # 245 Gm, 2 Refills, Maintenance, 08/31/23 8:52:00 EST, [place], [id number], Partial fill upon patient... Start Date: 08/31/23 [...] Gm, 1 Refills, Maintenance, 08/31/23 8:50:00 EST, [facility]/pharmacy #[id number], [...] 30 days ago entered on: 08/31/23 Sex Patient Care team information Care Team Personnel Name: Shonda HIGHTOWER, Dutch Lo Position: [facility] Physician - Primary Care Member Role: PCP Address: Address: [address] [place] [address]- Care Team Related Persons Name: SHAHLA DAILEY Address: home [address] [place] [address]
--- OUTSIDE RECORDS SUMMARY | 2024-02-27 11:07 | XMS_ITS | Continuity of Care Document ---
Author Organization [facility] [place] Hardy lt Address [address] [place] [address]- Care Team Providers Care Chapter Relations Administrator Name Role Phone Dutch Merchant MD Primary Care Physician [facility] Date(s): 08/08/23 - 09/07/23 [facility] Adult [address] [place] [address]- Allergies, Adverse Reactions, Alerts No Known Allergies Immunizations Given and Recorded Vaccine Date Status Refusal Reason SARS-CoV-2 (COVID-19) mRNA-1273 vaccine 08/09/21 R ecorded SARS-CoV-2 (COVID-19) Ad26 vaccine 11/21/20 Given tetanus/diphtheria/pertussis, acel(Tdap) 09/28/16 Given influenza virus vaccine, inactivated 1 05/31/16 Re corded 1Location History: [facility] 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 Benefiber oral powder for reconstitution See [...] Gm, 1 Refills, Maintenance, 08/31/23 8:50:00 EST, [facility]/pharmacy #[id number], Partial fill upon patient request [...] Refills, Maintenance, 10/23/22 14:26:00 EDT, CR Tablet, [facility]/pharmacy #[id number], Partial fill upon patient request [...] Personnel Name: Shonda HIGHTOWER, Dutch Lo Position: [facility] Physician - Primary Care Member Role: PCP Address: Address: [address] [place] [address]- Care Team Related Persons Name: SHAHLA DAILEY Address: home [address] [place] [address]
--- OUTSIDE RECORDS SUMMARY | 2024-02-27 11:07 | XMS_ITS | Continuity of Care Document ---
Author Organization [facility] Adult Address [address] [place] [address]- Care Team Providers Care Geologic Technician Name Role Phone Dutch Merchnat MD Primary Care Physician [facility]counter [facility] Date(s): 08/20/23 - 09/19/23 [facility] Adult [address] [place] [address]- Allergies, Adverse Reactions, Alerts No Known Allergies Immunizations Given and Recorded Vaccine Date Status Refusal Reason SARS-CoV-2 (COVID-19) mRNA-1273 vaccine 08/09/21 R ecorded SARS-CoV-2 (COVID-19) Ad26 vaccine 11/21/20 Given tetanus/diphtheria/pertussis, acel(Tdap) 09/28/16 Given influenza virus vaccine, inactivated 1 05/31/16 Re corded 1Location History: [facility] 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
--- OUTSIDE RECORDS SUMMARY | 2024-02-27 11:07 | XMS_ITS | Continuity of Care Document ---
Author Organization [facility] Sourav Reid Hardy lt Address [address] [place] [address]- Care Team Providers Care Electrical/Instrument Technician Name Role Phone Dutch Merchant MD Primary Care Physician [place] [facility] [place] 10/16/23 - 10/23/23 [facility] Sourav Perryley Adult [address] [place] [address]- Encounter Diagnosis IBS (irritable bowel syndrome)(Discharge Diagnosis) - 10/16/23 FABIO (generalized anxiety disorder)(Discharge Diagnosis) - 10/16/23 Depression, major, recurrent, moderate(Discharge Diagnosis) - 10/16/23 Tobacco abuse(Discharge Diagnosis) - 10/16/23 History of cocaine abuse(Discharge Diagnosis) - 10/16/23 Alcohol dependence in remission(Discharge Diagnosis) - 10/16/23 Attending Physician: Sara Webb NP Referring Physician: Dutch Merchant MD Allergies, Adverse Reactions, Alerts No Known Allergies Immunizations Given and Recorded Vaccine Date Status Refusal Reason SARS-CoV-2 (COVID-19) mRNA-1273 vaccine 08/09/21 R ecorded SARS-CoV-2 (COVID-19) Ad26 vaccine 11/21/20 Given tetanus/diphtheria/pertussis, acel(Tdap) 09/28/16 Given influenza virus vaccine, inactivated 1 05/31/16 Re corded 1Location History: [facility] 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 May inrease up to 3 times a day as needed., # 245 Gm, 2 Refills, Maintenance, 08/31/23 8:52:00 EST, REC Powder, [id number], Partial fill upon patient... Start Date: 08/31/23 Status: Ordered buPROPion 150 mg/24 hours (XL) oral tablet, extended release 0 Refills, Maintenance, 10/16/23 8:00:00 EST, Partial fill upon patient request if the prescriptionis for a schedule II opioid drug. Start Date: 10/16/23 Status: Ordered dicyclomine 10 mg oral capsule [...] mg, By Mouth, Daily, # 30 tablet, 6 Refills, Maintenance, 10/16/23 8:28:00 EST, CR Tablet, [id number], Partial fill upon patient request if the prescription is for a schedule IIopioid drug., 168, cm, 10/16/23 8:01:00 EST, Height Start Date: 10/16/23 Status: Ordered sertraline 50 mg oral tablet 1 tablet, By Mouth, Daily, # 30 tablet, 1 Refills, Maintenance, 10/23/22 14:26:00 EDT, [id number], 168, cm, 10/23/22 14:00:00 EDT, Height Start Date: 10/23/22 Status: Ordered traZODone 50 mg oral tablet Refills 0, Maintenance, 10/16/23 8:00:00 EST, Partial fill upon patient request if the prescriptionis for a schedule II opioid drug. Start Date: 10/16/23 Status: Ordered Tylenol 8 Hour 650 mg [...] Confirmed Active Excessive caffeine intake Confirmed Active FABIO (generalized anxiety disorder) Confirmed Active History of chlamydia 1 Confirmed Active IBS (irritable bowel syndrome) Confirmed Active Joint pain Confirmed Active Left lateral epicondylitis Confirmed Active Left cervical radiculopathy Confirmed Active Lt low back pain Confirmed Active Mixed incontinence Confirmed Active Arm pain Confirmed Active Tinea versicolor Confirmed Active PTSD (post-traumatic stress disorder) Confirmed Active Insomnia due to psychological stress Confirmed Active Tobacco abuse Confirmed Active 1j2016, routine screening Diagnosis Diagnosis Type Effective Dates Health Status Clinical Service Informant IBS (irritable bowel syndrome) Discharge Diagnosis 10/16/23 FABIO (generalized anxiety disorder) Discharge Diagnosis 10/16/23 Depression, major, recurrent, moderate Discharge Diagnosis 10/16/23 Tobacco abuse Discharge Diagnosis 10/16/23 History of cocaine abuse Discharge Diagnosis 10/16/23 Alcohol dependence in remission Discharge Diagnosis 10/16/23 Vital Signs Most recent to oldest [Reference Range]: 1 2 Height 168 cm (10/17/23 2:08 PM) 168 cm (10/16/23 8:01 AM) Weight 72.3 kg (10/17/23 2:08 PM) 72.3 kg (10/16/23 8:01 AM) Oxygen Saturation [94-100 %] 99 % (10/16/23 8:01 AM) Pulse Rate [55-90 bpm] 66 bpm (10/16/23 8:01 AM) Body Mass Index [18.5-24.99 kg/m2] 25.62 kg/m2 *H* (10/16/23 8:01 AM) Blood Pressure [90-138/55-84 mm Hg] 98/5 8mm Hg (10/16/23 8:01 AM) Temperature [96.8-100.4 DegF] 97.7 DegF (10/16/23 8:01 AM) Mode of Delivery (Oxygen) Room air (10/16/23 8:01 AM) Blood pressure sites Arm, left (10/16/23 8:01 AM) Temperature Route Oral (10/16/23 8:01 AM) Weight Obtained Via Standing scale (10/16/23 8:01 AM) Social History Social History Type Response Smoking Status Former smoker, quit more than 30 days ago entered on: 08/31/23 Sex Note * Haydee Sánchez: PERFORM, SIGN, VERIFY Event Display: Patient Education/Instruction Authored Date: [id number] [facility] *BMP So Franklin Alvarez Clinical Summary Name AMANDA FERNANDEZ Age 37 Years 1985 PCP Shonda HIGHTOWER, Dutch Lo PCP Visit Date 10/16/2023 07:54:00 Additional Instructions: Scheduled Appointments?? Future Appointments ?No Future Appointments Scheduled Follow-Up Instructions ?? With: Address: When: Jon PHELPS, Sara Morales [address] [place] [phone] [place] (1) In 1 year Comments: CPE Diagnosis Shortness of breath; Encounter for general adult medical examination without abnormal findings Medications: Please continue your medications until treatment is completed or stopped by your provider. Discuss any questions related to medications with your provider. Medications to Continue with No Changes [id number], [address] [place], [place] [id number], [phone] Omeprazole (omeprazole 20 mg oral delayed release tablet) 1 tab(s) Oral Daily. Refills: 6. Next Dose: These medications were not printed or sent to your pharmacy Acetaminophen (Tylenol 8 Hour 650 mg oral tablet, extended release) 2 tab(s) Oral every 8 hours. Next Dose: BuPROpion (buPROPion 150 mg/24 hours (XL) oral tablet, extended release) Next Dose: Dicyclomine (dicyclomine 10 mg oral capsule) 1 capsule Oral 4 times a day as needed Irritable BowelSymptoms. Refills: 1. Next Dose: Hydrocortisone Topical (hydrocortisone 2.5% topical cream) Topically 3 times a day; as needed Itch.Refills: 1. Next Dose: HydrOXYzine (hydrOXYzine hydrochloride 25 mg oral tablet) Next Dose: Multivitamin (Multi Vitamin+) Next Dose: Sertraline (sertraline 50 mg oral tablet) 1 tab(s) Oral Daily. Refills: 1. Next Dose: Trazodone (traZODone 50 mg oral tablet) Next Dose: wheat dextrin (Benefiber oral powder for reconstitution) 4 Gm dissolved in 4 to 8 oz of beverage- hot or cold taking by mouth daily. May inrease up to 3 times a day as needed.. Refills: 2. Next Dose: Allergy Info:?? NKA Medications Given This Visit Future Orders ?Direct LDL? Order Date:10/16/23?- Complete on or after?10/16/23 ?HDL Cholesterol? Order Date:10/16/23?- Complete on or after?10/16/23 ?Cholesterol Total? Order Date:10/16/23?- Complete on or after?10/16/23 ?CBC w/ Differential? Order Date:10/16/23?- Complete on or after?10/16/23 ?Comprehensive Metabolic Panel? Order Date:10/16/23?- Complete on or after?10/16/23 ?Thyroid Panel? Order Date:10/16/23?- Complete on or after?10/16/23 ?Chest 2 Views Frontal and Lat? Order Date:10/16/23?- Complete on or after?10/16/23 Vital Signs Height 168 cm Weight 72.3 kg BMI 25.62 kg/m2 Blood Pressure 98 mm Hg/58 mm Hg Temperature 97.7 DegF Pulse Rate 66 bpm Respiratory Rate 02 Sat Mode of Delivery 99 %/Room air You can now view a summary of your hospital visit from the comfort of your home through a free online portal called [employer]. [employer] is a website that allows you to securely view your medical information including discharge summary, medications and follow-up visits. ??You can alsosend a secure electronic message to your doctor???s office to request appointments, renew medications or just ask a question. You can enroll at [email or web address] or register during your next office visit. Disclaimer:?? The information provided is of a general nature and is intended to be used in conjunction with the recommendations and advice of your health care practitioner. ??Every effort has been made to ensure that the information provided is accurate and complete at the time it is provided to you however, as your needs change, or, as new ??information becomes available, different or additional instructions may be required. If you have questions, please consult with your primary care provider or pharmacist, as appropriate. ??This information is not intended to serve as substitution for assessment and evaluation by a qualified health care provider. If you do not have a primary care provider, you may find a [facility] provider by calling [facility] at [phone]. [facility], in keeping with [facility] guidance, no longer requires face masks for staff, patientsor visitors in most situations. Similar to time spent indoors at other locations, there is the chance that you were exposed to respiratory viruses during your time with us (such as flu or COVID-19).? If you develop symptoms concerning for a viral respiratory infection, please seek testing (and treatment if indicated) from your medical provider or home test kit. For information about the plan of care including goals and instructions for your diagnosis, please see the patient education orders section of this document. Patient Education Materials?? The content of this educational material or handout may have been modified, supplemented, or adapted from its original content and format to support your individualized medical care. Patient Care team information Care Team Personnel Name: Shonda HIGHTOWER, Dutch Lo Position: [facility] Physician - Primary Care Member Role: PCP Address: Address: [address] [place] [address]- [place] Care Team Related Persons Name: SHAHLA DAILEY Address: home [address] [place] [id number]
--- OUTSIDE RECORDS SUMMARY | 2024-02-27 11:08 | XMS_ITS | Continuity of Care Document ---
Author Organization [facility] Address [address] [place] [address]- Care Team Providers Care Correctional Program Officer Name Role Phone Dutch Merchant MD Primary Care Physician [phone] Encounter [facility] Date(s): 09/07/23 - 10/07/23 [facility] [address] [place] [address]- [place] Allergies, Adverse Reactions, Alerts No Known Allergies Immunizations Given and Recorded Vaccine Date Status Refusal Reason SARS-CoV-2 (COVID-19) mRNA-1273 vaccine 08/09/21 R ecorded SARS-CoV-2 (COVID-19) Ad26 vaccine 11/21/20 Given tetanus/diphtheria/pertussis, acel(Tdap) 09/28/16 Given influenza virus vaccine, inactivated 1 05/31/16 Re corded 1Location History: [facility] 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
--- OUTSIDE RECORDS SUMMARY | 2024-02-27 11:09 | XMS_ITS | Continuity of Care Document ---
Author Organization [facility] Address [address] [place] [address]- Care Team Providers Care Environmental Health And Safety Intern Name Role Phone Dutch Merchant MD Primary Care Physician [facility]counter [facility] Date(s): 11/16/23 - 12/16/23 [facility] [address] [place] [address]- [place] Allergies, Adverse Reactions, Alerts No Known Allergies Immunizations Given and Recorded Vaccine Date Status Refusal Reason SARS-CoV-2 (COVID-19) mRNA-1273 vaccine 08/09/21 R ecorded SARS-CoV-2 (COVID-19) Ad26 vaccine 11/21/20 Given tetanus/diphtheria/pertussis, acel(Tdap) 09/28/16 Given influenza virus vaccine, inactivated 1 05/31/16 Re corded 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 Benefiber oral powder for reconstitution See [...] 1 Refills, Maintenance, 08/31/23 8:50:00 EST, [facility]/pharmacy #[id number], Partial fill upon patient request [...] Refills, Maintenance, 10/16/23 8:28:00 EST, CR Tablet, [facility]/pharmacy #[id number], Partial fill upon patient request if the prescription is for a schedule IIopioid drug., 168, cm, 10/16/23 8:01:00 EST, Height Start Date: 10/16/23 Status: Ordered sertraline 50 mg oral tablet 1 tablet, By Mouth, Daily, # 30 tablet, 1 Refills, Maintenance, 10/23/22 14:26:00 EDT, [facility]/pharmacy#[id number], 168, cm, 10/23/22 14:00:00 EDT, Height [...] stress Confirmed Active Tobacco abuse Confirmed Active 1june 2016, routine screening Social History Social History Type Response Smoking Status Former smoker, quit more than 30 days ago entered on: 08/31/23 Sex Patient Care team information Care Team Personnel Name: Dutch Merchant MD Position: S Physician - Primary Care Member Role: PCP Address: Address: [address] [place] [address]- Care Team Related Persons Name: SHAHLA DAILEY Address: home [address] [place] [address]
--- OUTSIDE RECORDS SUMMARY | 2024-02-27 11:09 | XMS_ITS | Continuity of Care Document ---
Author Organization [facility] Sourav Reid Hardy lt Address [address] [place] [address]- Care Team Providers Care Office Coordinator Receptionist Name Role Phone Dutch Merchant MD Primary Care Physician Encounter [facility] Date(s): 01/03/24 - 02/02/24 [facility] Sourav Perryley Adult [address] [place] [address]- Allergies, Adverse Reactions, Alerts No Known Allergies Immunizations Given and Recorded Vaccine Date Status Refusal Reason SARS-CoV-2 (COVID-19) mRNA-1273 vaccine 08/09/21 R ecorded SARS-CoV-2 (COVID-19) Ad26 vaccine 11/21/20 Given tetanus/diphtheria/pertussis, acel(Tdap) 09/28/16 Given influenza virus vaccine, inactivated 1 05/31/16 Re corded 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 May inrease up to 3 times a day as needed., # 245 Gm, 2 Refills, Maintenance, 08/31/23 8:52:00 EST, REC Powder, [facility]/pharmacy #[id number], Partial fill upon patient... Start Date: 08/31/23 [...] 120 capsule, 1 Refills,Maintenance, 08/31/23 8:50:00 EST, [facility]/pharmacy #[id number], Partial fill upon patient request if the prescription is for a schedule II opioid drug., 168, cm... Start Date: 08/31/23 Status: Ordered hydrocortisone 2.5% topical cream See Instructions, PRN Itch, Topically 3 times a day, # 454 Gm, 1 Refills, Maintenance, 08/31/23 8:50:00 EST, [facility]/pharmacy #[id number], Partial fill upon [...] Refills, Maintenance, 10/16/23 8:28:00 EST, CR Tablet, [facility]/pharmacy #[id number], Partial fill upon patient request if the prescription is for a schedule IIopioid drug., 168, cm, 10/16/23 8:01:00 EST, Height Start Date: 10/16/23 Status: Ordered sertraline 50 mg oral tablet 1 tablet, By Mouth, Daily, # 30 tablet, 1 Refills, Maintenance, 10/23/22 14:26:00 EDT, [facility]/pharmacy#0373, 168, cm, 10/23/22 14:00:00 EDT, Height [...] Care Member Role: PCP Address: Address: [address] [place] [address]- Care Team Related Persons Name: SHAHLA DAILEY Address: home [address] [place] [phone]
--- OUTSIDE RECORDS SUMMARY | 2024-02-27 11:09 | XMS_ITS | Continuity of Care Document ---
Author Organization [facility] Sourav Reid Hardy lt Address [address] [place] [address]- Care Team Providers Care Interface Developer Name Role Phone Dutch Merchant MD Primary Care Physician Encounter [facility] Date(s): 10/18/23 - 11/17/23 [facility] Adult [address] [place] [address]- Allergies, Adverse Reactions, Alerts No Known Allergies Immunizations Given and Recorded Vaccine Date Status Refusal Reason SARS-CoV-2 (COVID-19) mRNA-1273 vaccine 08/09/21 R ecorded SARS-CoV-2 (COVID-19) Ad26 vaccine 11/21/20 Given tetanus/diphtheria/pertussis, acel(Tdap) 09/28/16 Given influenza virus vaccine, inactivated 1 05/31/16 Re corded 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 May inrease up to 3 times a day as needed., # 245 Gm, 2 Refills, Maintenance, 08/31/23 8:52:00 EST, REC Powder, [facility]/pharmacy #[id number], Partial fill upon patient... Start Date: 08/31/23 [...] 120 capsule, 1 Refills,Maintenance, 08/31/23 8:50:00 EST, [facility]/pharmacy #[id number], Partial fill upon patient request if the prescription is for a schedule II opioid drug., 168, cm... Start Date: 08/31/23 Status: Ordered hydrocortisone 2.5% topical cream See Instructions, PRN Itch, Topically 3 times a day, # 454 Gm, 1 Refills, Maintenance, 08/31/23 8:50:00 EST, [facility]/pharmacy #[id number], Partial fill upon patient request [...] Refills, Maintenance, 10/16/23 8:28:00 EST, CR Tablet, [facility]/pharmacy #[id number], Partial fill upon patient request if the prescription is for a schedule IIopioid drug., 168, cm, 10/16/23 8:01:00 EST, Height Start Date: 10/16/23 Status: Ordered sertraline 50 mg oral tablet 1 tablet, By Mouth, Daily, # 30 tablet, 1 Refills, Maintenance, 10/23/22 14:26:00 EDT, [facility]/pharmacy#[id number], 168, cm, 10/23/22 14:00:00 EDT, Height [...] Primary Care Member Role: PCP Address: Address: [address] [place] [address]- Care Team Related Persons Name: SHAHLA DAILEY Address: home [address] [place] [id number]
--- NOTE | 2024-02-27 11:13 | A.OFFVIS_ITS ---
Vital Signs 02/27/24 11:15 Height 5 ft 5 in Weight 156 lb 8.451 oz BMI 26.0 Intake Visit Reasons: urine dip Police Surgeon Required: No Information Interpreted: non-clinical & clinical Accompanied by: Self / Same As Patient Allergies No Known Allergies Allergy (Unknown, Verified 02/27/24 11:16) HPI Comments Details: Presenting for follow-up regarding dyspareunia and repeat urine dip. Last urine dip showed microscopic hematuria. The workup for dyspareunia include the following GC/CT was negative urine test was negative, pelvic ultrasound within normal. The patient is complaining of vaginal dryness during intercourse that might exacerbate her dyspareunia that is resolved with lubrication. In addition the patient is complaining of urinary frequency, leakage of urine upon coughing sneezing lifting heavy object and urge incon tinence. PFSH Medical History Irregular menses Surgical History H/O breast augmentation Tubal ligation status Family History Mother Leukemia HTN (hypertension) Father Asthma Diabetes Social History Household Members: Children Housing: Apartment Alcohol intake: current Patient Tobacco Use Status: Former Tobacco user e-Cigarette/Vaping Use: Currently Using Current occupational status: employed Sexual orientation: Straight/Heterosexual Gender identity: Female Female Reproductive History Menstrual Age of Menarche: 13 Review of Systems Const All systems reviewed & are unremarkable except as noted in HPI and below Reports as per HPI and Reports no additional complaints GI Reports no additional complaints Reports no additional complaints Physical Exam Vital Signs: BMI result Body Mass Index 26.0 Assessment & Plan Assessment & Plan (1) Dyspareunia, female: Code(s): N94.10 - Unspecified dyspareunia Category: Medical Plan: Discussed with the patient the results the workup including negative ultrasound, GC and chlamydia and BV panel. Recommended the use of lubricants and if dyspareunia is persistent, instructions given the patient to call for further management. All questions answered, the patient verbalized understanding (2) Microscopic hematuria: Code(s): R31.29 - Other microscopic hematuria Category: Medical Plan: Urine dip repeated today showed persistent microscopic hematuria, will proceed with CT scan of abdomen and pelvis and urology referral (3) Urine incontinence: Code(s): R32 - Unspecified urinary incontinence Category: Medical Plan: Discussed with the patient the different types of Urine incontinence, stress urinary incontinence, intrinsic sphincter deficiency, overactive bladder and its work up. We will refer to Urology. All questions answered, the patient verbalized understanding. Orders: Orders CT abdomen pelvis wo/w IV con Today R31.29 - Other microscopic hematuria Referrals Urology Referral R31.29 - Other microscopic hematuria Coding Level of Care Code Est Pt Level 3 (19811) Diagnoses Dyspareunia, female N94.10 Microscopic hematuria R31.29 Urine incontinence R32
[2024-02-27 11:15] VITALS: BMI 26.0
== END 2024-02-27 11:50 | disposition home or self-care (01) ==
LOC: HO.HWS 11:05
PROVIDERS: PCP Internal Medicine; Visit Provider Obstetrics & Gynecology
DX: N94.10 Unspecified dyspareunia (principal); R31.29 Other microscopic hematuria; R32 Unspecified urinary incontinence
CPT/HCPCS: 99213

== ENCOUNTER → 2024-02-27 11:05 | Outpatient (BNVA) | payer OTHER, SELFPAY | PROVIDERS: PCP Internal Medicine; Visit Provider Obstetrics & Gynecology | DX: N94.10 Unspecified dyspareunia (principal); R31.29 Other microscopic hematuria; R32 Unspecified urinary incontinence | CPT/HCPCS: 81002; 99212 ==

== ENCOUNTER 2024-04-21 15:28 | Outpatient (REF) | payer OTHER, SELFPAY ==
--- NOTE | ~2024-04-21 | CT_ITS ---
EXAMINATION: CT UROGRAM WITHOUT AND WITH CONTRAST CLINICAL INFORMATION: R31.29 - Other microscopic hematuria COMPARISON: None available. TECHNIQUE: Helical scanning was performed with collimation through the abdomen and pelvis precontrast. Helical scanning was then repeated with submillimeter collimation through the abdomen and pelvis in the pyelogram phase with use of 100 mL of Omnipaque 300 intravenous contrast. Sagittal and coronal 2-D reconstructions were obtained. Multiple additional 3-D volume rendered images were obtained of the kidneys and collecting systems on an independent workstation under concurrent supervision. This CT examination was performed using dose optimization techniques as appropriate, variously including the following: *Automated exposure control *Adjustment of mA and/or kV according to patient size (this includes techniques or standardized protocols for targeted exams where dose is matched to indication/reason for exam; i.e. extremities or head) *Use of iterative reconstruction technique DLP: 769 mgy*cm FINDINGS: LUNG BASES: Unremarkable. ABDOMINAL AND PELVIC WALL: Unremarkable. LIVER AND BILIARY TREE: Unremarkable. GALLBLADDER: Unremarkable. PANCREAS: Unremarkable. SPLEEN: Unremarkable. ADRENAL GLANDS: Unremarkable. KIDNEYS AND URETERS: The kidneys are normal in size, shape, and attenuation. No hydronephrosis, hydroureter, or calculi seen. No perinephric stranding. Bilateral mid and distal ureters are not well opacified likely secondary to contrast timing and peristalsis. No obstructing stone is seen in the bilateral renal collecting system. No obvious mass lesion or filling defect is seen in the collecting systems or ureters. GASTROINTESTINAL TRACT: Unremarkable. VASCULAR: Unremarkable. LYMPH NODES/PERITONEUM: No lymphadenopathy. FREE FLUID: None. BLADDER: Unremarkable. PELVIC VISCERA: Unremarkable. OSSEOUS STRUCTURES: Unremarkable. CT/CT abdomen pelvis wo/w IV con IMPRESSION: Bilateral mid and distal ureters are not well opacified likely secondary to contrast timing and peristalsis. No obstructing stone is seen in the bilateral renal collecting system. No obvious mass lesion or filling defect is seen in the collecting systems or ureters. Electronically signed by: Ankita De León MD 04/28/2024 04:59 PM EDT
[2024-04-21] MEDS: iohexoL 350 MG/ML 100 ML INFUS..BTL 85 ML IV (15:59)
== END 2024-04-21 15:29 | disposition home or self-care (01) ==
LOC: HO.CT 15:28
PROVIDERS: PCP Internal Medicine; Visit Provider Obstetrics & Gynecology
DX: R31.29 Other microscopic hematuria (principal)
CPT/HCPCS: 74178; Q9967

== ENCOUNTER 2024-04-28 13:28 | Outpatient (REF) | payer OTHER, SELFPAY ==
[2024-04-28 16:57] LABS: Urine Cytology See Pathology rpt
== END 2024-04-28 13:29 | disposition home or self-care (01) ==
LOC: HO.LNP 13:28
PROVIDERS: PCP Internal Medicine; Visit Provider Urology
DX: N39.0 Urinary tract infection, site not specified (principal); R31.29 Other microscopic hematuria; R32 Unspecified urinary incontinence; N32.89 Other specified disorders of bladder; R10.2 Pelvic and perineal pain
CPT/HCPCS: 51798; 81003; 88112; 99202

== ENCOUNTER 2024-04-28 13:28 | Outpatient (AMB) | payer OTHER, SELFPAY ==
--- NOTE | 2024-04-28 13:29 | A.OFFVIS_ITS ---
Intake Visit Reasons: microscopic hematuria/urinary incontinence Intake Note: Patient is present foR microscopic hematuria/urinary incontinence Urology Medication:none Antibiotic Allergy:none Blood Thinner:none TODAY'S PVR:0ML'S Senior Project Accountant Required: No Allergies No Known Allergies Allergy (Unknown, Verified 04/28/24 13:31) HPI Comments Details: Mariza is a 38-year-old female who is here for evaluation for microscopic hematuria. The patient complains of bladder spasms, urgency, pelvic pain. She had CT imaging ordered by her heater mechanic. Kidneys negative for masses or stones. I sinclair ve discussed reasons for blood in the urine may include but are not limited to kidney stones, cancer in the urinary tract, or inflammatory conditions of the urinary tract. I have discussed workup to include cystoscopy with hydrodistention will send urine for cytology. PFSH Medical History Irregular menses Surgical History H/O breast augmentation Tubal ligation status Family History Mother Leukemia HTN (hypertension) Father Asthma Diabetes Social History Household Members: Children Housing: Apartment Alcohol intake: current Patient Tobacco Use Status: Former Tobacco user e-Cigarette/Vaping Use: Currently Using Current occupational status: employed Sexual orientation: Straight/Heterosexual Gender identity: Female Female Reproductive History Menstrual Age of Menarche: 13 Review of Systems Const All systems reviewed & are unremarkable except as noted in HPI and below Reports no additional complaints Eyes Reports no additional complaints ENT Reports no additional complaints Card Reports no additional complaints Resp Reports no additional complaints GI Reports no additional complaints Reports as per HPI Musc Reports no additional complaints Skin/Breast Reports system reviewed and no additional complaints, except as documented Neuro Reports no additional complaints Psych Reports no additional complaints Endo Reports no additional complaints Anthony/Lymph Reports no additional complaints Aller/Immun Reports no additional complaints Physical Exam Const General: cooperative, healthy appearing and no acute distress Orientation/consciousness: patient oriented x3 HEENT Head: Yes normal to inspection, Yes normocephalic and Yes atraumatic Eyes Conjunctivae: conjunctivae normal Neck Neck: Yes normal visual inspection and Yes trachea midline Chest Chest palpation & inspection: normal inspection of the chest Resp Effort & Inspection: normal respiratory effort Cardio Rate: regular rate GI Inspection: Yes normal to inspection Palpation (GI): Soft to palpation Skin General skin exam: no rashes or lesions noted Neuro General: patient oriented x3 Extrem General: No edema Psych Appearance: grossly normal Office Procedures Post Void Residual Post Residual Void Post Void Residual (PVR): 0 [id number] Void Residual by ultrasound Results AMB Urinalysis, Automated UA Leukoctes 0 Clarence/uL Last Edit by LUKE Queen on 04/28/24 13:44 UA Nitrite Negative Last Edit by Germán Bueno [facility] on 04/28/24 13:44 UA Urobilinogen 0.2 mg/dL Last Edit by Germán Bueno [facility] on 04/28/24 13:4 4 UA Protein 15 mg/dL Last Edit by Germán Bueno [facility] on 04/28/24 13:44 UA pH 6.0 Last Edit by Germán Bueno [facility] on 04/28/24 13:44 UA Blood 200 Kieran/uL Last Edit by Germán Bueno [facility] on 04/28/24 13:44 UA Specific [place] 1.030 Last Edit by Germán Bueno [facility] on 04/28/24 13: 44 UA Ketone Negative Last Edit by Germán Bueno [facility] on 04/28/24 13:44 UA Bilirubin 0 mg/dL Last Edit by Germán Bueno [facility] on 04/28/24 13:44 UA Glucose 0 mg/dL Last Edit by Germán Bueno [facility] on 04/28/24 13:44 Results Reviewed Results Reviewed: Laboratory Last Values Urine pH (Auto) 6.0 04/28/24 13:43 Specific [place] (Auto) 1.030 04/28/24 13:43 Urine Protein (Auto) 15 mg/dL 04/28/24 13:43 Glucose (UA)(Auto) 0 mg/dL 04/28/24 13:43 Urine Ketones (Auto) Negative 04/28/24 13:43 Urine Blood (Auto) 200 Kieran/uL 04/28/24 13:43 Urine Nitrite (Auto) Negative 04/28/24 13:43 Urine Bilirubin (Auto) 0 mg/dL 04/28/24 13:43 Urine Urobilinogen (Auto) 0.2 mg/dL 04/28/24 13:43 Leukocyte Esterase (Auto) 0 Clarence/uL 04/28/24 13:43 Date of Service: 04/21/24 CT UROGRAM WITHOUT AND WITH CONTRAST CLINICAL INFORMATION: R31.29 - Other microscopic hematuria COMPARISON: None available. TECHNIQUE: Helical scanning was performed with collimation through the abdomen and pelvis precontrast. Helical scanning was then repeated with submillimeter collimation through the abdomen and pelvis in the pyelogram phase with use of 100 mL of Omnipaque 300 intravenous contrast. Sagittal and coronal 2-D reconstructions were obtained. Multiple additional 3-D volume rendered images were obtained of the kidneys and collecting systems on an independent workstation under concurrent supervision. This CT examination was performed using dose optimization techniques as appropriate, variously including the following: *Automated exposure control *Adjustment of mA and/or kV according to patient size (this includes techniques or standardized protocols for targeted exams where dose is matched to indication/reason for exam; i.e. extremities or head) *Use of iterative reconstruction technique DLP: 769 mgy*cm FINDINGS: LUNG BASES: Unremarkable. ABDOMINAL AND PELVIC WALL: Unremarkable. LIVER AND BILIARY TREE: Unremarkable. GALLBLADDER: Unremarkable. PANCREAS: Unremarkable. SPLEEN: Unremarkable. ADRENAL GLANDS: Unremarkable. KIDNEYS AND URETERS: The kidneys are normal in size, shape, and attenuation. No hydronephrosis, hydroureter, or calculi seen. No perinephric stranding. Bilateral mid and distal ureters are not well opacified likely secondary to contrast timing and peristalsis. No obstructing stone is seen in the bilateral renal collecting system. No obvious mass lesion or filling defect is seen in the collecting systems or ureters. GASTROINTESTINAL TRACT: Unremarkable. VASCULAR: Unremarkable. LYMPH NODES/PERITONEUM: No lymphadenopathy. FREE FLUID: None. BLADDER: Unremarkable. PELVIC VISCERA: Unremarkable. OSSEOUS STRUCTURES: Unremarkable. IMPRESSION: Bilateral mid and distal ureters are not well opacified likely secondary to contrast timing and peristalsis. No obstructing stone is seen in the bilateral renal collecting system. No obvious mass lesion or filling defect is seen in the collecting systems or ureters. Assessment & Plan Assessment & Plan (1) Microscopic hematuria: Code(s): R31.29 - Other microscopic hematuria Category: Medical (2) Female pelvic pain: Code(s): R10.2 - Pelvic and perineal pain Category: Medical (3) Bladder spasms: Code(s): N32.89 - Other specified disorders of bladder Category: Medical Plan cysto/hydro, urine cytology Orders: Orders AMB Urinalysis Automated 04/28/24 Z13.9 - Encounter for screening, unspecified Urine Cytology 04/28/24 N39.0 - Urinary tract infection, site not specified Patient Instructions: The patient had an opportunity to ask questions regarding treatment plan. The patient expressed understanding and agreement with the above treatment plan. The patient is aware they should contact our office by phone for worsening of their current condition or the appearance of new symptoms. Compliance is encouraged with any medications and followup testing that is ordered. It is a privilege to be allowed the opportunity to participate in the urologic care of your patient. If you have any questions or concerns regarding treatment for the above conditions please do not hesitate to contact me. The office telephone contact is [phone]. This note is constructed in part using voice recognition software. While every effort has been made to ensure accuracy physician relations manager errors may have been included. Yours sincerely, Kalyan Medina MD Coding Level of Care Code New Pt Level 4 (58511) Diagnoses Microscopic hematuria R31.29 Female pelvic pain R10.2 Bladder spasms N32.89 CPT Codes Post Residual Void - PVR CPT Code: 10220-Nzwt Void Residual by ultrasound ([id number])
== END 2024-04-28 14:06 | disposition home or self-care (01) ==
PROVIDERS: PCP Internal Medicine; Visit Provider Urology
DX: R31.29 Other microscopic hematuria (principal); R10.2 Pelvic and perineal pain; N32.89 Other specified disorders of bladder
CPT/HCPCS: 99204

== ENCOUNTER 2024-05-01 08:57 | Outpatient (AMB) | payer OTHER, SELFPAY ==
--- OUTSIDE RECORDS SUMMARY | 2024-05-01 08:59 | XMS_ITS | Continuity of Care Document ---
Author Organization [facility] Address [address] [place] [id number]- Care Team Providers Care Verifying Machine Operator Name Role Phone Dutch Merchant MD Primary Care Physician [facility] [facility] [place]s): 11/28/23 - 03/27/24 [facility] [address] [place] [id number]- Attending Physician: Eleazar Sanchez MD Admitting Physician: Eleazar Sanchez MD Referring Physician: Dutch Merchant MD Allergies, Adverse Reactions, Alerts No Known Allergies Immunizations Given and Recorded Vaccine Date Status Refusal Reason SARS-CoV-2 (COVID-19) mRNA-1273 vaccine 08/09/21 R ecorded SARS-CoV-2 (COVID-19) Ad26 vaccine 11/21/20 Given tetanus/diphtheria/pertussis, acel(Tdap) 09/28/16 Given influenza virus vaccine, inactivated 1 05/31/16 Re corded 1Location History: [facility] [employer]ULTING DIRECT[employer] 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 May inrease up to 3 times a day as needed., # 245 Gm, 2 Refills, Maintenance, 08/31/23 8:52:00 EST, REC Powder, [facility]/pharmacy #[id number], Partial fill upon patient... Start Date: 08/31/23 [...] Primary Care Member Role: PCP Address: Address: [address] [place] [address]- Care Team Related Persons Name: DAILEYMAYOSHAHLA Address: home [address] [place] [id number]
--- OUTSIDE RECORDS SUMMARY | 2024-05-01 09:00 | XMS_ITS | Continuity of Care Document ---
Author Organization [facility] Address [address] [place] [id number]- Care Team Providers Care Solid Plasterer Name Role Phone Dutch Merchant MD Primary Care Physician [phone] Encounter [facility] R [id number] Date(s): 02/26/24 - 03/27/24 [facility] [address] [place] [id number]- Attending Physician: Laurent Castañeda Admitting Physician: Admtr, [id number] Referring Physician: Admtr, [id number] Allergies, Adverse Reactions, Alerts No Known Allergies Immunizations Given and Recorded Vaccine Date Status Refusal Reason SARS-CoV-2 (COVID-19) mRNA-1273 vaccine 08/09/21 R ecorded SARS-CoV-2 (COVID-19) Ad26 vaccine 11/21/20 Given tetanus/diphtheria/pertussis, acel(Tdap) 09/28/16 Given influenza virus vaccine, inactivated 1 05/31/16 Re corded 1Location History: [facility] [employer] 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 May inrease up to 3 times a day as needed., # 245 Gm, 2 Refills, Maintenance, 08/31/23 8:52:00 EST, REC Powder, [id number], Partial fill upon patient... Start Date: 08/31/23 [...] 120 capsule, 1 Refills,Maintenance, 08/31/23 8:50:00 EST, [facility]/pharmacy #[id number], Partial fill upon patient request if the prescription is for a schedule II opioid drug., 168, cm... Start Date: 08/31/23 Status: Ordered hydrocortisone 2.5% topical cream See Instructions, PRN Itch, Topically 3 times a day, # 454 Gm, 1 Refills, Maintenance, 08/31/23 8:50:00 EST, [facility]/pharmacy #[id number], Partial fill upon patient request if [...] Refills, Maintenance, 10/16/23 8:28:00 EST, CR Tablet, [facility]/pharmacy #[id number], Partial fill upon patient request if [...] Personnel Name: Shonda HIGHTOWER, Dutch Lo Position: [facility] Physician - Primary Care Member Role: PCP Address: Address: [address] [place] [address]- Care Team Related Persons Name: DAILEY SHAHLA Address: home [address] [place] [id number]
[2024-05-01 09:03] VITALS: BP 118/70; BMI 26.0
--- NOTE | 2024-05-01 09:03 | MHC.OFFVIS ---
Vital Signs 05/01/24 09:03 Height 5 ft 5 in Weight 156 lb 8.451 oz BMI 26.0 BP 118/70 Intake Visit Reasons: CT follow up Allergies No Known Allergies Allergy (Unknown, Verified 04/28/24 13:31) HPI Comments Details: Presenting for follow-up CT scan regarding microscopic hematuria. CT scan done recently showed the following: IMPRESSION: Bilateral mid and distal ureters are not well opacified likely secondary to contrast timing and peristalsis. No obstructing stone is seen in the bilateral renal collecting system. No obvious mass lesion or filling defect is seen in the collecting systems or ureters. The patient was referred to Urology, was seen in the office and scheduled for a cystoscopy soon [facility] Medical History Irregular menses Surgical History H/O breast augmentation Tubal ligation status Family History Mother Leukemia HTN (hypertension) Father Asthma Diabetes Social History Household Members: Children Housing: Apartment Alcohol intake: current Patient Tobacco Use Status: Former Tobacco user e-Cigarette/Vaping Use: Currently Using Current occupational status: employed Sexual orientation: Straight/Heterosexual Gender identity: Female Female Reproductive History Menstrual Age of Menarche: 13 Review of Systems Const All systems reviewed & are unremarkable except as noted in HPI and below Reports as per HPI and Reports no additional complaints GI Reports no additional complaints Reports no additional complaints Assessment & Plan Assessment & Plan (1) Microscopic hematuria: Code(s): R31.29 - Other microscopic hematuria Category: Medical Plan: Discussed with the patient the finding on CT scan, the patient was reassured. All questions answered, the patient verbalized understanding Coding Level of Care Code Est Pt Level 3 (50125) Diagnoses Microscopic hematuria R31.29
== END 2024-05-01 09:35 | disposition home or self-care (01) ==
LOC: HO.HWS 08:57
PROVIDERS: PCP Internal Medicine; Visit Provider Obstetrics & Gynecology
DX: R31.29 Other microscopic hematuria (principal)
CPT/HCPCS: 99213

== ENCOUNTER → 2024-05-01 08:57 | Outpatient (BNVA) | payer OTHER, SELFPAY | PROVIDERS: PCP Internal Medicine; Visit Provider Obstetrics & Gynecology | DX: R31.29 Other microscopic hematuria (principal) | CPT/HCPCS: 99212 ==

== ENCOUNTER 2024-06-03 05:57 | Day surgery (SDC) | payer OTHER, SELFPAY ==
[2024-05-22 14:46] VITALS: BMI 26.0
--- NOTE | 2024-05-23 10:02 | P.CONAN_ITS ---
Documented by User: Danae Bundy NP 05/23/24 10:02 HPI - Anesthesia Eval Consult details Narrative: 38yo F for Cystoscopy Hydrodistention of Bladder PMFSH Active Problems Active Problems: All Active Problems Bladder spasms (Acute) Urine incontinence (Acute) Vulvovaginitis (Acute) Dyspareunia, female (Acute) Screen for STD (sexually transmitted disease) (Acute) Abnormal uterine bleeding (AUB) (Acute) Microscopic hematuria (Acute) Female pelvic pain (Acute) Well woman exam (Acute) Past Medical History Medical History Irregular menses Family History Family History Mother Leukemia HTN (hypertension) Father Asthma Diabetes Surgical History Surgical History H/O breast augmentation Tubal ligation status Social History Social History Household Members: Children Housing: Apartment Are you a primary career transition specialist to a significant other at home: No Do you presently have visiting nurse or other home services: No Alcohol intake: current Alcohol intake frequency: holidays/special occasions only Patient Tobacco Use Status: Former Tobacco user e-Cigarette/Vaping Use: Currently Using Use of substances other than those prescribed or required for medical reasons: No Have you been hit, kicked, punched, or otherwise hurt by someone within the past year? If so, by whom?: No Are you DNR?: No Advance Directives: No Advance Directives Information Provided: Yes Recently lost weight without trying: No Nutrition Risks: No Nutritional Risk Patient : No FDLMP: 04/27/24 Current occupational status: employed Sexual orientation: Straight/Heterosexual Gender identity: Female Meds Allergies Allergy/AdvReac Type Severity Reaction Status Date / Time No Known Allergies Allergy Unknown Verified 06/03/24 06:36 Home Medications ?Medication ?Instructions ?Recorded ?Confirmed ?Last Taken ?Type multivitamin 1 tab PO DAILY 02/02/21 06/03/24 Unknown History clindamycin phosphate 1 % topical topical BID 02/14/23 Unknown History gel Exam Height,Weight and Vital Signs: Height 5 ft 5 in Weight 70.999 kg Assessment and Plan Assessment Anesthesia Assessment: Chart Reviewed Documented by User: Solomon Nava MD 06/03/24 07:28 PMFSH Past Medical History Medical History Irregular menses Family History Family History Mother Leukemia HTN (hypertension) Father Asthma Diabetes Family history of problems with anesthesia: No Surgical History Surgical History H/O breast augmentation Tubal ligation status History of Problems with Anesthesia: No Social History Social History Household Members: Children Housing: Apartment Are you a primary career transition specialist to a significant other at home: No Do you presently have visiting nurse or other home services: No Alcohol intake: current Alcohol intake frequency: holidays/special occasions only Patient Tobacco Use Status: Former Tobacco user e-Cigarette/Vaping Use: Currently Using Use of substances other than those prescribed or required for medical reasons: No Have you been hit, kicked, punched, or otherwise hurt by someone within the past year? If so, by whom?: No Are you DNR?: No Advance Directives: No Advance Directives Information Provided: Yes Recently lost weight without trying: No Nutrition Risks: No Nutritional Risk Patient : No FDLMP: 04/27/24 Current occupational status: employed Sexual orientation: Straight/Heterosexual Gender identity: Female Meds Allergies Allergy/AdvReac Type Severity Reaction Status Date / Time No Known Allergies Allergy Unknown Verified 06/03/24 06:36 Home Medications ?Medication ?Instructions ?Recorded ?Confirmed ?Last Taken ?Type multivitamin 1 tab PO DAILY 02/02/21 06/03/24 Unknown History clindamycin phosphate 1 % topical topical BID 02/14/23 Unknown History gel Exam Airway Mallampati Class: II TM Dist: >3cm Neck ROM: Full Loose/Missing/Broken Teeth: No Heart: ok Lungs: ok Assessment and Plan Assessment Anesthesia Assessment: Anesthesia Plan Discussed Final Anesthetic Review Family History of Problems with Anesthesia: No History of Problems with Anesthesia: No NPO: Yes ASA Class: II Final Preanesthetic Review: No Changes in Pt Med Stat, Meds/Allgs Chart Reviewed, Consent Obtained/Reviewed and Anes Risks/Benef Reviewed Patient Risk: Low Procedure Risk: Low Anesthetic Plan Anesthetic Plan: GA and Agree w/ Assess. and Plan Disposition: Standard PACU
[2024-06-03 06:13] VITALS: BMI 29.6
[2024-06-03 06:34] VITALS: BP 115/70; PULSE 70; RESP 12; TEMP 36.1; O2SAT 98
[2024-06-03] MEDS: Lactated Ringers 1,000 ML 100 ML IVCONT (06:37)
--- NOTE | 2024-06-03 07:21 | MHC.SHP ---
Pre-Procedural Eval Section A - 24 Hr Update-Section A only Date of Service: 06/03/24 The patient is an INPATIENT: No The patient has been examined within 24 hours of the surgical procedure. The History & Physical has been completed within 30 days and I have reviewed it.: Yes Section B - Complete if H&P > 30 days Chief Complaint: Other microscopic hematuria Allergies: Allergies Allergy/AdvReac Type Severity Reaction Status Date / Time No Known Allergies Allergy Unknown Verified 06/03/24 06:36 Plan Diagnosis/Plan: Unchanged I have reviewed the history and physical and performed a pertinent physical examination on my patient. No changes have occurred unless specified. Cystoscopy Hydrodistension. Cystoscopy. Discussed risks to include but not limited to, blood in the urine, burning with urination, urgency. Time Spent With Patient Time: Total time managing care of this patient today ____ minutes.
[2024-06-03 08:08] VITALS: BP 118/81; PULSE 91; RESP 18; TEMP 36.1; O2SAT 98
--- NOTE | 2024-06-03 08:10 | W.PM.OPN ---
Operative Note Operative Note Date of Service: 06/03/24 Narrative: PREOP DIAGNOSIS: microscopic hematuria, urgency POSTOP DIAGNOSIS: Interstitial cystitis, urgency, microscopic hematuria, PROCEDURE: CYSTOSCOPY HYDRODISTENTION Anethesia: General Surgeon: Dr. Kalyan Medina Details of procedure: The patient was brought into the operating room placed on the OR table in supine position. 2 g of Ancef IV. General anesthesia was administered. The patient was repositioned into lithotomy position, prepped and draped in the usual sterile fashion. Time-out was done per protocol. A 22 fr cystoscope was placed transurethrally into the bladder. Urine was drained from the bladder measuring 75 mL.The right and left ureteral orifices were visualized. The entire bladder was visualized. There were no suspicious bladder lesions seen. There were mild trabeculations noted. The bladder was filled with sterile water at 80 cm of water pressure under gravity. The bladder was distended for 2 minutes. Bladder capacity measured 525 mL. Revisualization of the bladder, noted mild/moderate glomerulations. No Ariel ulcerations. The bladder was refilled with sterile water again at 80 cm of water pressure under gravity. The bladder was distended for 3 minutes. The fluid was drained from the bladder and measured 575 mL. The cystoscope was removed. 2% lidocaine urojet was passed transurethrally, Solution of (1% lidocaine plain, 15 mL, 0.5 % Marcaine 15 mL mixed with 30, 000 units of heparin concentration 5000 units per mL total of 6 mL hepaine) instilled transurethrally into the bladder. Belladonna suppository ID administered. The patient was brought out of anesthesia and taken to recovery in stable condition. Complications: None Drains: none
[2024-06-03 08:13] VITALS: BP 116/76; PULSE 80; RESP 16; O2SAT 99
[2024-06-03 08:18] VITALS: BP 126/78; PULSE 82; RESP 16; O2SAT 100
[2024-06-03 08:23] VITALS: BP 125/88; PULSE 67; RESP 16; O2SAT 100
[2024-06-03 08:38] VITALS: BP 133/86; PULSE 67; RESP 16; TEMP 36.1; O2SAT 99
== END 2024-06-03 09:19 | disposition home or self-care (01) ==
PROVIDERS: PCP Internal Medicine; Visit Provider Urology
PROC: 0T7B7ZZ Dilation of Bladder, Via Natural or Artificial Opening (ICD-10-PCS; CPT 52260; principal; 2024-06-03 07:30)
DX: N30.10 Interstitial cystitis (chronic) without hematuria (principal); R31.29 Other microscopic hematuria; R39.15 Urgency of urination; N32.89 Other specified disorders of bladder; N92.6 Irregular menstruation, unspecified; Z79.899 Other long term (current) drug therapy; Z98.51 Tubal ligation status; Z98.890 Other specified postprocedural states; Z87.891 Personal history of nicotine dependence
CPT/HCPCS: 52260; 87086; J0690; J1644; J1885; J2003; J2405; J2704; J2795; J3010

== ENCOUNTER → 2024-06-03 05:57 | Outpatient (BNV) | payer OTHER, SELFPAY | PROVIDERS: PCP Internal Medicine; Visit Provider Urology | DX: R31.29 Other microscopic hematuria (principal) | CPT/HCPCS: 52260 ==

== ENCOUNTER → 2024-06-18 13:23 | Outpatient (BNVA) | payer OTHER, SELFPAY | PROVIDERS: PCP Internal Medicine; Visit Provider Urology | DX: N32.89 Other specified disorders of bladder (principal); R31.29 Other microscopic hematuria; R32 Unspecified urinary incontinence | CPT/HCPCS: 51798 ==

== ENCOUNTER 2024-06-30 15:43 | Outpatient (AMB) | payer OTHER, SELFPAY ==
--- NOTE | 2024-06-30 13:32 | A.OFFVIS_ITS ---
Intake Visit Reasons: Hydrodistension-follow up Intake Note: Patient is present for HYDRODISTENSION F/U Urology Medication:NONE Antibiotic Allergy:NONE Blood Thinner:NONE Seasoner Required: No Allergies No Known Allergies Allergy (Unknown, Verified 06/30/24 15:44) HPI Comments Details: 06/30/24--Mariza is here for FU. Status post cystoscopy hydrodistention on 06/03/2024--findings:Revisualization of the bladder, noted mild/moderate glomerulations. No Ariel ulcerations. The bladder was refilled with sterile water again at 80 cm of water pressure under gravity. The bladder was distended for 3 minutes. The fluid was drained from the bladder and measured 575 mL. Discussed we will treat with VESIcare anticholinergic for symptoms of urgency and discussed pelvic floor PT. Review of chart: 04/28/24--Mariza is a 38-year-old female who is here for evaluation for microscopic hematuria. The patient complains of bladder spasms, urgency, pelvic pain. She had CT imaging ordered by her cover mat machine operator. Kidneys negative for masses or stones. I have discussed reasons for blood in the urine may include but are not limited to kidney stones, cancer in the urinary tract, or inflammatory conditions of the urinary tract. I have discussed workup to include cystoscopy with hydrodistention will send urine for cytology. [facility] Medical History Irregular menses Surgical History H/O breast augmentation Tubal ligation status Family History Mother Leukemia HTN (hypertension) Father Asthma Diabetes Social History Household Members: Children Housing: Apartment Are you a primary health care / medical job titles to a significant other at home: No Do you presently have visiting nurse or other home services: No Alcohol intake: current Alcohol intake frequency: holidays/special occasions only Patient Tobacco Use Status: Former Tobacco user e-Cigarette/Vaping Use: Currently Using Current occupational status: employed Sexual orientation: Straight/Heterosexual Gender identity: Female Female Reproductive History Menstrual Age of Menarche: 13 Review of Systems Const All systems reviewed & are unremarkable except as noted in HPI and below Reports no additional complaints Eyes Reports no additional complaints ENT Reports no additional complaints Card Reports no additional complaints Resp Reports no additional complaints GI Reports no additional complaints Reports as per HPI Musc Reports no additional complaints Skin/Breast Reports system reviewed and no additional complaints, except as documented Neuro Reports no additional complaints Psych Reports no additional complaints Endo Reports no additional complaints Anthony/Lymph Reports no additional complaints Aller/Immun Reports no additional complaints Results AMB Urinalysis, Automated UA Leukoctes 0 Clarence/uL Last Edit by LUKE Queen on 06/30/24 15:52 UA Nitrite Negative Last Edit by Germán Bueno [facility] on 06/30/24 15:52 UA Urobilinogen 0.2 mg/dL Last Edit by Germán Bueno [facility] on 06/30/24 15:5 2 UA Protein 15 mg/dL Last Edit by Germán Bueno [facility] on 06/30/24 15:52 UA pH 6.5 Last Edit by Germán Bueno [facility] on 06/30/24 15:52 UA Blood 80 Kieran/uL Last Edit by Germán Bueno [facility] on 06/30/24 15:52 UA Specific [place] 1.020 Last Edit by Germán Bueno [facility] on 06/30/24 15: 52 UA Ketone Negative Last Edit by Germán Bueno [facility] on 06/30/24 15:52 UA Bilirubin 0 mg/dL Last Edit by Germán Bueno [facility] on 06/30/24 15:52 UA Glucose 0 mg/dL Last Edit by Germán Bueno [facility] on 06/30/24 15:52 Results Reviewed Results Reviewed: Laboratory Last Values Urine pH (Auto) 6.5 06/30/24 15:51 Specific [place] (Auto) 1.020 06/30/24 15:51 Urine Protein (Auto) 15 mg/dL 06/30/24 15:51 Glucose (UA)(Auto) 0 mg/dL 06/30/24 15:51 Urine Ketones (Auto) Negative 06/30/24 15:51 Urine Blood (Auto) 80 Kieran/uL 06/30/24 15:51 Urine Nitrite (Auto) Negative 06/30/24 15:51 Urine Bilirubin (Auto) 0 mg/dL 06/30/24 15:51 Urine Urobilinogen (Auto) 0.2 mg/dL 06/30/24 15:51 Leukocyte Esterase (Auto) 0 Clarence/uL 06/30/24 15:51 Date of Service: 04/21/24 CT UROGRAM WITHOUT AND WITH CONTRAST CLINICAL INFORMATION: R31.29 - Other microscopic hematuria COMPARISON: None available. TECHNIQUE: Helical scanning was performed with collimation through the abdomen and pelvis precontrast. Helical scanning was then repeated with submillimeter collimation through the abdomen and pelvis in the pyelogram phase with use of 100 mL of Omnipaque 300 intravenous contrast. Sagittal and coronal 2-D reconstructions were obtained. Multiple additional 3-D volume rendered images were obtained of the kidneys and collecting systems on an independent workstation under concurrent supervision. This CT examination was performed using dose optimization techniques as appropriate, variously including the following: *Automated exposure control *Adjustment of mA and/or kV according to patient size (this includes techniques or standardized protocols for targeted exams where dose is matched to indication/reason for exam; i.e. extremities or head) *Use of iterative reconstruction technique DLP: 769 mgy*cm FINDINGS: LUNG BASES: Unremarkable. ABDOMINAL AND PELVIC WALL: Unremarkable. LIVER AND BILIARY TREE: Unremarkable. GALLBLADDER: Unremarkable. PANCREAS: Unremarkable. SPLEEN: Unremarkable. ADRENAL GLANDS: Unremarkable. KIDNEYS AND URETERS: The kidneys are normal in size, shape, and attenuation. No hydronephrosis, hydroureter, or calculi seen. No perinephric stranding. Bilateral mid and distal ureters are not well opacified likely secondary to contrast timing and peristalsis. No obstructing stone is seen in the bilateral renal collecting system. No obvious mass lesion or filling defect is seen in the collecting systems or ureters. GASTROINTESTINAL TRACT: Unremarkable. VASCULAR: Unremarkable. LYMPH NODES/PERITONEUM: No lymphadenopathy. FREE FLUID: None. BLADDER: Unremarkable. PELVIC VISCERA: Unremarkable. OSSEOUS STRUCTURES: Unremarkable. IMPRESSION: Bilateral mid and distal ureters are not well opacified likely secondary to contrast timing and peristalsis. No obstructing stone is seen in the bilateral renal collecting system. No obvious mass lesion or filling defect is seen in the collecting systems or ureters. Assessment & Plan Assessment & Plan (1) Microscopic hematuria: Code(s): R31.29 - Other microscopic hematuria Category: Medical (2) Female pelvic pain: Code(s): R10.2 - Pelvic and perineal pain Category: Medical (3) Bladder spasms: Code(s): N32.89 - Other specified disorders of bladder Category: Medical (4) Urine incontinence: Code(s): R32 - Unspecified urinary incontinence Category: Medical (5) Pelvic floor weakness: Code(s): N81.89 - Other female genital prolapse Category: Medical Plan VESIcare, refer for to pelvic floor physical therapy Orders: Orders AMB Urinalysis Automated 06/30/24 Z13.9 - Encounter for screening, unspecified Referrals Pelvic Community Engagement Representative Referral R32 - Unspecified urinary incontinence, N81.89 - Other female genital prolapse Medications: New solifenacin (Vesicare) 5 mg PO DAILY 20 tabs 0RF Coding Level of Care Code Est Pt Level 4 (03608) Diagnoses Microscopic hematuria R31.29 Female pelvic pain R10.2 Bladder spasms N32.89 Urine incontinence R32 Pelvic floor weakness N81.89
== END 2024-06-30 16:02 | disposition home or self-care (01) ==
PROVIDERS: PCP Internal Medicine; Visit Provider Urology
DX: R31.29 Other microscopic hematuria (principal); R10.2 Pelvic and perineal pain; N32.89 Other specified disorders of bladder; R32 Unspecified urinary incontinence; N81.89 Other female genital prolapse
CPT/HCPCS: 99214

== ENCOUNTER → 2024-06-30 15:43 | Outpatient (BNVA) | payer OTHER, SELFPAY | PROVIDERS: PCP Internal Medicine; Visit Provider Urology | DX: R31.29 Other microscopic hematuria (principal); R10.2 Pelvic and perineal pain; R32 Unspecified urinary incontinence; N32.89 Other specified disorders of bladder; N81.89 Other female genital prolapse | CPT/HCPCS: 81003; 99212 ==